=== PATIENT | male | born 1965 | race Caucasian/White ===

== ENCOUNTER 2018-03-26 10:36 | Inpatient (IN) | payer OTHER ==
[2018-03-26 11:24] VITALS: BMI 24.3
--- NOTE | 2018-03-26 12:08 | HP ---
"COWS - Scale Resting Pulse: 1= OR 81-100 Sweatin= No chills or Flushing Restless Observation: 3= Extraneous Movement Pupil Size: 0= Normal to Room Light Bone or Joint Aches: 0= None Runny Nose/ Eye Tearin= Runny Nose/Eyes GI Upset > 30mins: 0= None Tremor Observation: 0= None Yawning Observation: 0= None Anxiety or Irritability: 2=Irritable/Anxious Goose Flesh Skin: 0=Smooth Skin COWS Score: 8 CIWA Score Nausea/Vomitin-No Nausea/No Vomiting Muscle Tremors: None Anxiety: 4-Mod. Anxious/Guarded Agitation: 4-Moderately Restless Paroxysmal Sweats: No Perspiration Orientation: 2-Disoriented Date<2 days Tacttile Disturbances: 0-None Auditory Disturbances: 0-None Visual Disturbances: 0-None Headache: 0-None Present CIWA-Ar Total Score: 10 - Admission Criteria OASAS Guidelines: Admission for Medically Managed Detox: Requires at least one of the followin. CIWA greater than 12 2. Seizures within the past 24 hours 3. Delirium tremens within the past 24 hours 4. Hallucinations within the past 24 hours 5. Acute intervention needed for co occurring medical disorder 6. Acute intervention needed for co occurring psychiatric disorder 7. Severe withdrawal that cannot be handled at a lower level of care (continued vomiting, continued diarrhea, abnormal vital signs) requiring intravenous medication and/or fluids 8. Admission ROS [facility] Allergies/Adverse Reactions: Allergies Allergy/AdvReac Type Severity Reaction Status Date / Time No Known Drug Allergies Allergy Verified 03/26/18 13:22 pneumococcal vaccine AdvReac Intermediate Verified 03/26/18 13:15 RED SAUCE AdvReac Intermediate Nausea Uncoded 03/26/18 13:15 History of Present Illness: patient here requesting detox from heroin use , reports using 10-20 bags/day heroin since age 31 , intermittent periods of sobriety , longest 13 years with working for [employer] [place] . Latest use yesterday , denies IVDU .OD x 2 , most recently 3 mo ago , Narcan by EMS , taken to [facility]. Has been at this facility in the past . Was in outpt program at [facility], stopped meds, relapsed on heroin . cocaine - latest use 1-2 hours ago , $ 500 in 2 days , first age of use 31 etoh use - latest 1 hr ago had 1 beer, first age of use 15 , max daily use 2 x 6-pk and 2 pints vodka, denies daily use , denies withdrawal symptoms , drinks about 4 x/ week , denies blackouts/ seizures / falls while intoxicated . utox + odalys, fen , opi , bar tobacco 1/2 ppd requesting nrt w/ gum PMhx : hypothyroid 2/2 thyroid CA and thyroidectomy 5 years ago 2/2 left sided anterior cervical mass , HDL , chronic LBP planning to have stim , left knee / left ankle pain chronic , sometimes left knee gives out , has endocrinology appt q 3 mo , missed latest appt , [facility] PShx : as above+ ventral hernia & SBO 4 years ago ( [facility]) Psych : anxiety , depression - latest seen psych 2 mo ago @ [facility] , given meds does not know name , did not bring. Shx : lives alone , unemployed , finances habit through odd jobs [employer] database verified : This report was requested by: Janell Alcantar | Reference #: [id number] Others' Prescriptions Patient Name: Amrik Chaparro Date: 1965 Address: [address] [place] [address] Sex: Male Rx Written Rx Dispensed Drug Quantity Days Supply Prescriber Name 12/16/2017 12/17/2017 suboxone 8 mg-2 mg sl film 87 29 Gena Demarco 12/11/2017 12/13/2017 suboxone 8 mg-2 mg sl film 9 3 Milady Magallon 12/08/2017 12/09/2017 suboxone 8 mg-2 mg sl film 15 5 Gena Demarco 12/01/2017 12/02/2017 suboxone 8 mg-2 mg sl film 21 7 Gena Demarco 11/24/2017 11/25/2017 suboxone 8 mg-2 mg sl film 21 7 Gena Demarco 11/18/2017 11/18/2017 suboxone 8 mg-2 mg sl film 21 7 Benito Link MD 11/11/2017 11/12/2017 suboxone 8 mg-2 mg sl film 21 7 Gena Demarco 11/06/2017 11/09/2017 suboxone 8 mg-2 mg sl film 8 3 Gena Demarco 11/03/2017 11/03/2017 suboxone 8 mg-2 mg sl film 14 7 Gena Demarco 10/30/2017 10/31/2017 suboxone 8 mg-2 mg sl film 6 3 Gena Demarco 10/28/2017 10/28/2017 suboxone 8 mg-2 mg sl film 6 3 Gena Demarco Exam Limitations: No Limitations - Ebola screening Have you traveled outside of the country in the last 21 days: No Have you had contact with anyone from an Ebola affected area: No Have you been sick,other than usual withdrawal symptoms: No Do you have a fever: No - Review of Systems Constitutional: See HPI EENT: reports: Other (reading glasses) Respiratory: reports: No Symptoms reported Cardiac: reports: No Symptoms Reported GI: reports: No Symptoms Reported : reports: No Symptoms Reported Musculoskeletal: reports: No Symptoms Reported Integumentary: reports: No Symptoms Reported Neuro: reports: No Symptoms reported Endocrine: reports: Other (hypothyrodism) Psychiatric: reports: Orientated x3, Agitated, Anxious Patient History - Patient Medical History Hx Anemia: No Hx Asthma: No Hx Chronic Obstructive Pulmonary Disease (COPD): No Hx Cancer: Yes (thyroid CA 3yrs ago takes synthroid 150meq) Hx Cardiac Disorders: No Hx Congestive Heart Failure: No Hx Hypertension: No Hx Hypercholesterolemia: No Hx Pacemaker: No HX Cerebrovascular Accident: No Hx Seizures: No Hx Dementia: No Hx Diabetes: No Hx Gastrointestinal Disorders: No Hx Liver Disease: No Hx Genitourinary Disorders: No Hx Sexually Transmitted Disorders: No Hx Renal Disease (ESRD): No Hx Thyroid Disease: No Hx Human Immunodeficiency Virus (HIV): No (negative) Hx Hepatitis C: No Hx Depression: Yes (on therapy Mar 2014) Hx Suicide Attempt: No (denies) Hx Bipolar Disorder: No Hx Schizophrenia: No - Patient Surgical History Past Surgical History: Yes Hx Neurologic Surgery: No Hx Cataract Extraction: No Hx Cardiac Surgery: No Hx Lung Surgery: No Hx Breast Surgery: No Hx Breast Biopsy: No Hx Abdominal Surgery: Yes (abdominal hernia 1yr ago) Hx Appendectomy: No Hx Cholecystectomy: No Hx Genitourinary Surgery: No Hx Section: No Hx Orthopedic Surgery: No Other Surgical History: thryroidectomy 2011 Anesthesia Reaction: No - PPD History Date: 10/30/14 - Smoking Cessation Smoking history: Smoker current status UNK Have you smoked in the past 12 months: No Aproximately how many cigarettes per day: 0 Hx Chewing Tobacco Use: No - Substances Abused Alcohol Route: Oral Frequency: Daily Amount used: 2 PINTS OF VODKA, AND 12 12OZ CANS OF BEER Age of first use: 15 Date of Last Use: 03/26/18 Cocaine Route: Smoking Frequency: Daily Amount used: $500 Age of first use: 31 Date of Last Use: 03/26/18 Heroin Route: Inhalation Frequency: Daily Amount used: 8-9 BAGS Age of first use: 31 Date of Last Use: 03/25/18 Family Disease History - Family Disease History Family Disease History: Diabetes: Mother (d. 77 ), Heart Disease: Mother, Other : Father (70's A & W ), Brother (d. 58 liver cirrhosis , d. 63 cirhhosis liver , d . 61 liver cirrhosis ), Sister, Daughter (30's A & W ) Other Family History: 12 siblings , 6 half-siblings , youngest sibling 2 y.o. > 100 nieces and nephews Admission Physical Exam [facility] - Vital Signs Vital Signs: Vital Signs - 24 hr 03/26/18 11:21 Temperature 97 F L Pulse Rate 84 Respiratory 20 Rate Blood Pressure 108/74 - Physical General Appearance: Yes: Mild Distress, Anxious HEENTM: Yes: EOMI, Hearing grossly Normal, Normocephalic, Normal Voice Respiratory: Yes: Chest Non-Tender, Lungs Clear, Normal Breath Sounds Neck: Yes: Mass (left side of neck) Breast: Yes: Breast Exam Deferred Cardiology: Yes: Regular Rhythm, Regular Rate, Tachycardia Abdominal: Yes: Normal Bowel Sounds, Soft Genitourinary: Yes: Within Normal Limits Back: Yes: Normal Inspection Musculoskeletal: Yes: full range of Motion, Gait Steady, Back pain (chronic), Joint Stiffness (chronic - left knee, left ankle, bilateral knees crepitus) Extremities: Yes: Normal Capillary Refill, Normal Inspection, Tremors Neurological: Yes: Alert, Motor Strength 5/5 Integumentary: Yes: Dry, Warm - Diagnostic (1) Opioid dependence Current Visit: Yes Status: Acute Qualifiers: Substance use status: in withdrawal Qualified Code(s): F11.23 - Opioid dependence with withdrawal (2) Cocaine dependence Current Visit: Yes Status: Chronic Qualifiers: Substance use status: uncomplicated Qualified Code(s): F14.20 - Cocaine dependence, uncomplicated (3) Alcohol dependence Current Visit: No Status: Acute Qualifiers: Substance use status: uncomplicated Qualified Code(s): F10.20 - Alcohol dependence, uncomplicated (4) Nicotine dependence Current Visit: No Status: Chronic Qualifiers: Nicotine product type: cigarettes (5) Hypothyroidism associated with surgical procedure Current Visit: No Status: Chronic BHS Breath Alcohol Content Breath Alcohol Content: 0 Urine Drug Screen - Results Drug Screen Negative: No Urine Drug Screen Results: ODALYS-Cocaine, OPI-Opiates, BAR-Barbiturates, FEN- Fentanyl"
[2018-03-26] MEDS ORDERED: IBUPROFEN 400 MG TABLET (FP) PO PRN (12:24)
[2018-03-26] MEDS ORDERED: NICOTINE POLACRILEX 2 MG GUM BC PRN (12:24)
[2018-03-26] MEDS ORDERED: P-EPHED 60MG/TRIPROLIDI 2.5MG TABLET PO PRN (12:24)
[2018-03-26] MEDS ORDERED: MAG HYDROX/AL HYDROX/SIMETH 30 ML UNIT-DOSE CUP PO PRN (12:24)
[2018-03-26] MEDS ORDERED: ACETAMINOPHEN 325 MG TABLET (FP) PO PRN (12:24)
[2018-03-26] MEDS ORDERED: MAGNESIUM CITRATE 300 ML BOTTLE PO PRN (12:24)
[2018-03-26] MEDS ORDERED: MAGNESIUM HYDROX 2400MG/30ML ORAL SUSPENSION 30 ML CUP PO PRN (12:24)
[2018-03-26] MEDS ORDERED: guaiFENesin/D-METHORPHAN HB 10 ML UNIT-DOSE CUPS PO PRN (12:24)
[2018-03-26] MEDS ORDERED: MENTHOL/PHENOL 1 EACH UD MM PRN (12:24)
[2018-03-26] MEDS ORDERED: METHADONE HCL 10 MG TABLET (FOR DETOX USE ONLY) PO ONE ×2 (14:15→23:00)
[2018-03-26] MEDS: diazePAM 5 MG TABLET PO PRN ×2 (15:40→22:22)
[2018-03-26] MEDS: ATORVASTATIN CA 10 MG TABLET (FP) PO SCH (22:21)
[2018-03-26] MEDS: THIAMINE HCL 100 MG TABLET (FP) PO SCH (22:22)
[2018-03-27] MEDS ORDERED: LEVOTHYROXINE NA 100 MCG TABLET (FP) ONE (07:09)
[2018-03-27] MEDS ORDERED: LEVOTHYROXINE NA 25 MCG TABLET (FP) ONE (07:09)
[2018-03-27] MEDS: LEVOTHYROXINE 75 MCG, LEVOTHYROXINE 100 MCG PO SCH (07:11)
[2018-03-27] MEDS ORDERED: METHADONE HCL 10 MG TABLET (FOR DETOX USE ONLY) PO ONE (10:00)
[2018-03-27] MEDS ORDERED: LEVOTHYROXINE NA 25 MCG TABLET (FP) PO SCH (10:00)
[2018-03-27] MEDS: PRENATAL VITAMINS W/ FOLIC ACID TABLET (FP) PO SCH (10:17)
[2018-03-27] MEDS: GABAPENTIN 300 MG CAPSULE (FP) PO SCH ×2 (10:18→22:06)
[2018-03-27 10:31] LABS: HEMATOCRIT 42.1 % (35.4-49); HEMOGLOBIN 14.5 GM/dL (11.7-16.9); MCH 31.6 pg (25.7-33.7); MCHC 34.5 g/dl (32.0-35.9); MEAN CELL VOLUME 91.5 fl (80-96); MEAN PLT VOLUME 10.3 fl (7.5-11.1); PLATELET COUNT 322 K/MM3 (134-434); RDW 14.7 % (11.9-15.9); WHITE BLOOD COUNT 6.6 K/mm3 (4.0-10.0)
[2018-03-27 11:05] LABS: ALBUMIN 3.6 g/dl (3.4-5.0); ALK PHOS 89 U/L (45-117); ANION GAP 6 MMOL/L (8-16); BILIRUBIN,TOTAL 0.8 mg/dL (0.2-1); BLOOD UREA NITROGEN 23 mg/dL (7-18); CHLORIDE 109 mmol/L (98-107); CO2 28 mmol/L (21-32); CREATININE 1.1 mg/dL (0.55-1.3); GLUCOSE,RANDOM 113 mg/dL (74-106); POTASSIUM 5.2 mmol/L (3.5-5.1); SGOT/AST 24 U/L (15-37); SGPT/ALT 29 U/L (13-61); SODIUM 143 mmol/L (136-145); TOT PROT 6.5 g/dl (6.4-8.2)
--- NOTE | 2018-03-27 11:42 | PN ---
[facility] CIWA - CIWA Score Nausea/Vomitin-No Nausea/No Vomiting Muscle Tremors: 2 Anxiety: 2 Agitation: 2 Paroxysmal Sweats: No Perspiration Orientation: 0-Oriented Tacttile Disturbances: 3-Moderate Itch/Numb/Burn Auditory Disturbances: 0-None Visual Disturbances: 0-None Headache: 0-None Present CIWA-Ar Total Score: 9 BHS COWS - Scale Resting Pulse: 0= PA 80 or Below Sweatin= No chills or Flushing Restless Observation: 1= Difficult to Sit Still Pupil Size: 1= Pupils >than Normal Bone or Joint Aches: 2= Severe Diffuse Aches Runny Nose/ Eye Tearin= None GI Upset > 30mins: 0= None Tremor Observation of Outstretched Hands: 2= Slight Tremor Visible Yawning Observation: 0= None Anxiety or Irritability: 2=Irritable/Anxious Goose Flesh Skin: 0=Smooth Skin COWS Score: 8 BHS Progress Note (SOAP) Subjective: PATIENT C/O ANXIETY, RESTLESSNESS, SHAKES, CHILLS, SLEEP DISTURBANCE AND NUMBNESS/TINGLING TO EXTREMITIES. Objective: 03/27/18 11:38 Vital Signs Temperature 97.9 F 03/27/18 10:47 Pulse Rate 65 03/27/18 10:47 Respiratory Rate 18 03/27/18 10:47 Blood Pressure 106/63 03/27/18 10:47 O2 Sat by Pulse Oximetry (%) Laboratory Tests 03/27/18 03/27/18 05:45 05:45 WBC 6.6 RBC 4.60 Hgb 14.5 Hct 42.1 MCV 91.5 MCH 31.6 MCHC 34.5 RDW 14.7 Plt Count 322 MPV 10.3 D Sodium 143 Potassium 5.2 H Chloride 109 H Carbon Dioxide 28 Anion Gap 6 L BUN 23 H Creatinine 1.1 Creat Clearance w eGFR > 60 Random Glucose 113 H Calcium 9.0 Total Bilirubin 0.8 AST 24 ALT 29 Alkaline Phosphatase 89 Total Protein 6.5 Albumin 3.6 PE: SKIN WARM AND DRY ALERT AND ORIENTED X 3 EXT FULL ROM, +SHAKES, NO EDEMA AMB AD CHARLIE ANXIOUS/RESTLESSNESS Assessment: 03/27/18 11:42 WITHDRAWAL SX Plan: CONTINUE DETOX ENCOURAGE ORAL FLUIDS EXTERNAL HX REVIEWED, PATIENT LAST ORDERED GABAPENTIN 300MG TID 11/2017 WILL ORDER GABAPENTIN 300MG BID CONTINUE TO MONITOR CLINICALLY
[2018-03-27] MEDS: ATORVASTATIN CA 10 MG TABLET (FP) PO SCH (22:06)
[2018-03-27] MEDS: diazePAM 5 MG TABLET PO PRN (22:06)
[2018-03-27] MEDS: THIAMINE HCL 100 MG TABLET (FP) PO SCH (22:06)
[2018-03-27] MEDS: MELATONIN 5 MG TABLETS PO PRN (22:07)
[2018-03-27] MEDS: LOPERAMIDE HCL 2 MG CAPSULE PO PRN (22:26)
[2018-03-28] MEDS ORDERED: LEVOTHYROXINE NA 25 MCG TABLET (FP) ONE (04:36)
[2018-03-28] MEDS ORDERED: LEVOTHYROXINE NA 100 MCG TABLET (FP) ONE (04:36)
[2018-03-28] MEDS: LOPERAMIDE HCL 2 MG CAPSULE PO PRN ×3 (04:43→19:19)
[2018-03-28] MEDS: diazePAM 5 MG TABLET PO PRN ×4 (05:07→22:03)
[2018-03-28] MEDS: LEVOTHYROXINE 75 MCG, LEVOTHYROXINE 100 MCG PO SCH (06:03)
[2018-03-28] MEDS: PRENATAL VITAMINS W/ FOLIC ACID TABLET (FP) PO SCH (09:52)
[2018-03-28] MEDS: GABAPENTIN 300 MG CAPSULE (FP) PO SCH ×2 (09:52→22:03)
[2018-03-28] MEDS ORDERED: METHADONE HCL 5 MG TABLET (FOR DETOX USE ONLY) PO ONE (10:00)
--- NOTE | 2018-03-28 10:24 | PN ---
[facility] CIWA - CIWA Score Nausea/Vomitin Muscle Tremors: 2 Anxiety: 3 Agitation: 3 Paroxysmal Sweats: 2 Orientation: 0-Oriented Tacttile Disturbances: 1-Very Mild Itch/Numbness Auditory Disturbances: 0-None Visual Disturbances: 0-None Headache: 1-Very Mild CIWA-Ar Total Score: 15 S COWS - Scale Resting Pulse: 0= DE 80 or Below Sweatin= Chills/Flushing Restless Observation: 1= Difficult to Sit Still Pupil Size: 0= Normal to Room Light Bone or Joint Aches: 1= Mild Discomfort Runny Nose/ Eye Tearin= Nasal Congestion GI Upset > 30mins: 5=Frequent Vomit/Diarrhea Tremor Observation of Outstretched Hands: 2= Slight Tremor Visible Yawning Observation: 0= None Anxiety or Irritability: 1=Feels Anxious/Irritable Goose Flesh Skin: 0=Smooth Skin COWS Score: 12 BHS Progress Note (SOAP) Subjective: Diarrhea, nausea, tremors, interrupted sleep Objective: 03/28/18 10:21 Vital Signs - 8 hr 03/28/18 03/28/18 03/28/18 03:30 06:10 09:34 Temperature 97.0 F L 96.2 F L Pulse Rate 65 68 Respiratory 18 18 18 Rate Blood Pressure 123/85 132/82 Laboratory Last Values WBC 6.6 K/mm3 (4.0-10.0) 03/27/18 05:45 RBC 4.60 M/mm3 (4.00-5.60) 03/27/18 05:45 Hgb 14.5 GM/dL (11.7-16.9) 03/27/18 05:45 Hct 42.1 % (35.4-49) 03/27/18 05:45 MCV 91.5 fl (80-96) 03/27/18 05:45 MCH 31.6 pg (25.7-33.7) 03/27/18 05:45 MCHC 34.5 g/dl (32.0-35.9) 03/27/18 05:45 RDW 14.7 % (11.9-15.9) 03/27/18 05:45 Plt Count 322 K/MM3 (134-434) 03/27/18 05:45 MPV 10.3 fl (7.5-11.1) D 03/27/18 05:45 Sodium 143 mmol/L (136-145) 03/27/18 05:45 Potassium 5.2 mmol/L (3.5-5.1) H 03/27/18 05:45 Chloride 109 mmol/L (98-107) H 03/27/18 05:45 Carbon Dioxide 28 mmol/L (21-32) 03/27/18 05:45 Anion Gap 6 MMOL/L (8-16) L 03/27/18 05:45 BUN 23 mg/dL (7-18) H 03/27/18 05:45 Creatinine 1.1 mg/dL (0.55-1.3) 03/27/18 05:45 Creat Clearance w eGFR > 60 (>60) 03/27/18 05:45 Random Glucose 113 mg/dL (74-106) H 03/27/18 05:45 Calcium 9.0 mg/dL (8.5-10.1) 03/27/18 05:45 Total Bilirubin 0.8 mg/dL (0.2-1) 03/27/18 05:45 AST 24 U/L (15-37) 03/27/18 05:45 ALT 29 U/L (13-61) 03/27/18 05:45 Alkaline Phosphatase 89 U/L (45-117) 03/27/18 05:45 Total Protein 6.5 g/dl (6.4-8.2) 03/27/18 05:45 Albumin 3.6 g/dl (3.4-5.0) 03/27/18 05:45 RPR Titer Nonreactive (NONREACTIVE) 03/27/18 05:45 Labs noted Potassium repeated this morning, results pending Abdomen soft, BS x4, NT, ND Assessment: Withdrawal sx with protracted diarrhea Plan: Continue detox Patient encouraged to take loperamide as ordered
[2018-03-28] MEDS: ATORVASTATIN CA 10 MG TABLET (FP) PO SCH (22:03)
[2018-03-28] MEDS: THIAMINE HCL 100 MG TABLET (FP) PO SCH (22:03)
[2018-03-28] MEDS: MELATONIN 5 MG TABLETS PO PRN (22:03)
[2018-03-28] MEDS: DIPHENOXYLATE 2.5/ATROPINE.025 1 COMBO TABLET PO PRN (23:52)
[2018-03-29] MEDS: diazePAM 5 MG TABLET PO PRN ×2 (03:04→10:09)
[2018-03-29] MEDS ORDERED: LEVOTHYROXINE NA 100 MCG TABLET (FP) ONE (04:10)
[2018-03-29] MEDS ORDERED: LEVOTHYROXINE NA 25 MCG TABLET (FP) ONE (04:10)
[2018-03-29] MEDS: DIPHENOXYLATE 2.5/ATROPINE.025 1 COMBO TABLET PO PRN (05:22)
[2018-03-29] MEDS: LEVOTHYROXINE 75 MCG, LEVOTHYROXINE 100 MCG PO SCH (06:56)
[2018-03-29] MEDS ORDERED: METHADONE HCL 10 MG TABLET (FOR DETOX USE ONLY) PO ONE (10:00)
[2018-03-29] MEDS: GABAPENTIN 300 MG CAPSULE (FP) PO SCH ×2 (10:09→22:30)
[2018-03-29] MEDS: PRENATAL VITAMINS W/ FOLIC ACID TABLET (FP) PO SCH (10:09)
[2018-03-29] MEDS ORDERED: DIPHENOXYLATE 2.5/ATROPINE.025 1 COMBO TABLET PO PRN ×2 (10:17→10:29)
[2018-03-29] MEDS ORDERED: LOPERAMIDE HCL 2 MG CAPSULE PO ONE (10:46)
[2018-03-29] MEDS: LOPERAMIDE HCL 2 MG CAPSULE PO PRN ×4 (14:17→22:32)
--- NOTE | 2018-03-29 15:25 | PN ---
BHS Progress Note (SOAP) Subjective: Diarrhea (persistent), interrupted sleep Objective: 03/29/18 15:20 Last Vital Signs Temp Pulse Resp BP Pulse Ox 97.8 F 90 18 110/79 03/29/18 13:14 03/29/18 13:14 03/29/18 13:14 03/29/18 13:14 Laboratory Tests 03/27/18 03/27/18 03/27/18 05:45 05:45 05:45 WBC 6.6 RBC 4.60 Hgb 14.5 Hct 42.1 MCV 91.5 MCH 31.6 MCHC 34.5 RDW 14.7 Plt Count 322 MPV 10.3 D Sodium 143 Potassium 5.2 H Chloride 109 H Carbon Dioxide 28 Anion Gap 6 L BUN 23 H Creatinine 1.1 Creat Clearance w eGFR > 60 Random Glucose 113 H Calcium 9.0 Total Bilirubin 0.8 AST 24 ALT 29 Alkaline Phosphatase 89 Total Protein 6.5 Albumin 3.6 RPR Titer Nonreactive 03/28/18 07:40 WBC RBC Hgb Hct MCV MCH MCHC RDW Plt Count MPV Sodium Potassium 4.7 Chloride Carbon Dioxide Anion Gap BUN Creatinine Creat Clearance w eGFR Random Glucose Calcium Total Bilirubin AST ALT Alkaline Phosphatase Total Protein Albumin RPR Titer Labs reviewed: bun 23 Assessment: 03/29/18 15:22 Withdrawal symptoms Persistent diarrhea Plan: Continue detox Persistent diarrhea r/t withdrawal: d/c lomotil as patient stated it's not helpful, restart imodium 4mg PO x 1 dose then 2mg PO q2hr prn diarrhea to mdd of 16mg/day, encouraged PO water hydration, repeat BMP in AM
--- NOTE | 2018-03-29 19:27 | PN ---
BHS Progress Note Note: Pt c/o persistent diarrhea. Appears weak, mucus membranes moist, no tenting to skin Continue with the imodium ordered, eat bread, avoid vegetables and diary products. Continue to monitor symptoms
[2018-03-29] MEDS: THIAMINE HCL 100 MG TABLET (FP) PO SCH (22:31)
[2018-03-29] MEDS: ATORVASTATIN CA 10 MG TABLET (FP) PO SCH (22:31)
[2018-03-29] MEDS: MELATONIN 5 MG TABLETS PO PRN (22:32)
[2018-03-30] MEDS: LOPERAMIDE HCL 2 MG CAPSULE PO PRN ×2 (00:43→05:23)
[2018-03-30] MEDS ORDERED: LEVOTHYROXINE NA 25 MCG TABLET (FP) ONE (04:46)
[2018-03-30] MEDS ORDERED: LEVOTHYROXINE NA 100 MCG TABLET (FP) ONE (04:46)
[2018-03-30] MEDS ORDERED: METHADONE HCL 5 MG TABLET (FOR DETOX USE ONLY) PO ONE (06:00)
[2018-03-30] MEDS: LEVOTHYROXINE 75 MCG, LEVOTHYROXINE 100 MCG PO SCH (06:20)
[2018-03-30 09:46] VITALS: BP 117/78; PULSE 91; TEMP 99
--- NOTE | 2018-03-30 10:28 | DS ---
[facility] Detox Discharge Summary Admission Date: 03/26/18 Discharge Date: 03/30/18 - History Present History: Opioid Dependence Additional Comments: 53 years old male admitted on 03/26/18 for opiate withdrawal stabilization completed opiate detox regimen tolerated well alert no acute distress aftercare as per counselor arrangement Pertinent Past History: patient stated that he has diarrhea from food patient has good skin turgor moist oral membrane no pain no nausea no vomiting patient requests to stay in detox longer for diarrhea suggested ER evaluation for etiology patient refuses to go to the ER at this time strong recommend the patient to use emergency services if condition worsening - Physical Exam Results Vital Signs: Vital Signs Temperature 99.0 F 03/30/18 09:45 Pulse Rate 91 H 03/30/18 09:45 Respiratory Rate 17 03/30/18 09:45 Blood Pressure 117/78 03/30/18 09:45 O2 Sat by Pulse Oximetry (%) Pertinent Admission Physical Exam Findings: opiate withdrawal sx Vital Signs Temperature 99.0 F 03/30/18 09:45 Pulse Rate 91 H 03/30/18 09:45 Respiratory Rate 17 03/30/18 09:45 Blood Pressure 117/78 03/30/18 09:45 O2 Sat by Pulse Oximetry (%) Laboratory Last Values WBC 6.6 K/mm3 (4.0-10.0) 03/27/18 05:45 RBC 4.60 M/mm3 (4.00-5.60) 03/27/18 05:45 Hgb 14.5 GM/dL (11.7-16.9) 03/27/18 05:45 Hct 42.1 % (35.4-49) 03/27/18 05:45 MCV 91.5 fl (80-96) 03/27/18 05:45 MCH 31.6 pg (25.7-33.7) 03/27/18 05:45 MCHC 34.5 g/dl (32.0-35.9) 03/27/18 05:45 RDW 14.7 % (11.9-15.9) 03/27/18 05:45 Plt Count 322 K/MM3 (134-434) 03/27/18 05:45 MPV 10.3 fl (7.5-11.1) D 03/27/18 05:45 Sodium 143 mmol/L (136-145) 03/27/18 05:45 Potassium 4.7 mmol/L (3.5-5.1) 03/28/18 07:40 Chloride 109 mmol/L (98-107) H 03/27/18 05:45 Carbon Dioxide 28 mmol/L (21-32) 03/27/18 05:45 Anion Gap 6 MMOL/L (8-16) L 03/27/18 05:45 BUN 23 mg/dL (7-18) H 03/27/18 05:45 Creatinine 1.1 mg/dL (0.55-1.3) 03/27/18 05:45 Creat Clearance w eGFR > 60 (>60) 03/27/18 05:45 Random Glucose 113 mg/dL (74-106) H 03/27/18 05:45 Calcium 9.0 mg/dL (8.5-10.1) 03/27/18 05:45 Total Bilirubin 0.8 mg/dL (0.2-1) 03/27/18 05:45 AST 24 U/L (15-37) 03/27/18 05:45 ALT 29 U/L (13-61) 03/27/18 05:45 Alkaline Phosphatase 89 U/L (45-117) 03/27/18 05:45 Total Protein 6.5 g/dl (6.4-8.2) 03/27/18 05:45 Albumin 3.6 g/dl (3.4-5.0) 03/27/18 05:45 RPR Titer Nonreactive (NONREACTIVE) 03/27/18 05:45 lab noted - Treatment Hospital Course: Detox Protocol Followed, Detoxed Safely, Responded well, Discharged Condition Good, Rehab Referral Accepted Patient has Accepted a Rehab Referral to: as per counselor arrangement - Medication Discharge Medications: Ambulatory Orders Atorvastatin Calcium [Lipitor] 10 mg PO HS 03/26/18 Gabapentin [Neurontin -] 300 mg PO Q8H 03/26/18 Levothyroxine [Synthroid -] 175 mcg PO DAILY 03/26/18 - Diagnosis (1) Opioid dependence with withdrawal Status: Acute (2) Diarrhea Status: Acute Qualifiers: Diarrhea type: unspecified type Qualified Code(s): R19.7 - Diarrhea, unspecified (3) Opioid-induced mood disorder Status: Suspected (4) Nicotine dependence Status: Acute Qualifiers: Nicotine product type: cigarettes Substance use status: in withdrawal Qualified Code(s): F17.213 - Nicotine dependence, cigarettes, with withdrawal - AMA Did Patient Leave Against Medical Advice: No
[2018-03-30 10:32] LABS: ANION GAP 7 MMOL/L (8-16); BLOOD UREA NITROGEN 13 mg/dL (7-18); CALCIUM 8.5 mg/dL (8.5-10.1); CHLORIDE 106 mmol/L (98-107); CO2 25 mmol/L (21-32); GLUCOSE,RANDOM 86 mg/dL (74-106); POTASSIUM 4.5 mmol/L (3.5-5.1); SODIUM 139 mmol/L (136-145)
== END 2018-03-30 09:39 | disposition home or self-care (01) | DRG 773 ==
LOC: YASAS 10:36 → Y3N 14:08
PROC: HZ2ZZZZ Detoxification Services for Substance Abuse Treatment (ICD-10-PCS; principal; 2018-03-26)
DX: F11.23 Opioid dependence with withdrawal (principal); F11.24 Opioid dependence with opioid-induced mood disorder; F10.230 Alcohol dependence with withdrawal, uncomplicated; F14.20 Cocaine dependence, uncomplicated; F17.213 Nicotine dependence, cigarettes, with withdrawal; R19.7 Diarrhea, unspecified; G62.9 Polyneuropathy, unspecified; E78.5 Hyperlipidemia, unspecified; E89.0 Postprocedural hypothyroidism; Z85.850 Personal history of malignant neoplasm of thyroid
CPT/HCPCS: 36415; 80048; 80053; 84132; 85027; 86593

== ENCOUNTER 2018-08-20 12:57 | Inpatient (IN) | payer OTHER ==
[2018-08-20 15:53] VITALS: BMI 24.3
--- NOTE | 2018-08-20 17:20 | HP ---
COWS - Scale Resting Pulse: 0= [place] 80 or Below Sweatin= Chills/Flushing Restless Observation: 0= Sits Still Pupil Size: 0= Normal to Room Light Bone or Joint Aches: 4=Acute Joint/Muscle Pain Runny Nose/ Eye Tearin= None GI Upset > 30mins: 1= Stomach Cramp Tremor Observation: 0= None Yawning Observation: 0= None Anxiety or Irritability: 1=Feels Anxious/Irritable Goose Flesh Skin: 0=Smooth Skin COWS Score: 7 CIWA Score Nausea/Vomitin-No Nausea/No Vomiting Muscle Tremors: None Anxiety: 4-Mod. Anxious/Guarded Agitation: 0-Normal Activity Paroxysmal Sweats: No Perspiration Orientation: 1-Uncertain about Date Tacttile Disturbances: 1-Very Mild Itch/Numbness Auditory Disturbances: 0-None Visual Disturbances: 3-Moderate Sensitivity Headache: 0-None Present CIWA-Ar Total Score: 9 - Admission Criteria OASAS Guidelines: Admission for Medically Managed Detox: Requires at least one of the followin. CIWA greater than 12 2. Seizures within the past 24 hours 3. Delirium tremens within the past 24 hours 4. Hallucinations within the past 24 hours 5. Acute intervention needed for co occurring medical disorder 6. Acute intervention needed for co occurring psychiatric disorder 7. Severe withdrawal that cannot be handled at a lower level of care (continued vomiting, continued diarrhea, abnormal vital signs) requiring intravenous medication and/or fluids 8. Admission ROS [facility] Allergies/Adverse Reactions: Allergies Allergy/AdvReac Type Severity Reaction Status Date / Time No Known Drug Allergies Allergy Verified 08/20/18 15:47 pneumococcal vaccine AdvReac Intermediate Verified 08/20/18 15:47 RED SAUCE AdvReac Intermediate Nausea Uncoded 08/20/18 15:47 History of Present Illness: patient here requesting detox from heroin use , reports using 8-10 bags/day via inhalation since age 31 , intermittent periods of sobriety , longest 13 years with working for [employer] [place] . Latest use this morning 5 am 3 bags , current symptoms as above , denies IVDU . OD x 2 , most recently 8 mo ago , Narcan by EMS , taken to [facility]. Has been at this facility in the past . Was in outpt program at [facility], stopped meds, relapsed on heroin . cocaine - " a lot " , $ 200/ day , first age of use 31 , denies IVDU etoh use - latest 2 hrs ago had 1 beer, first age of use 15 , max daily use now is 1 x 6-pk and 1 pint vodka, denies daily use , denies withdrawal symptoms , drinks about 2-3 x/week , denies blackouts/ seizures / falls while intoxicated . utox + odalys, fen , opi tobacco 1/2 ppd requesting nrt w/ gum PMhx : hypothyroid 2/2 thyroid CA and thyroidectomy 5 years ago 2/2 left sided anterior cervical mass , HDL , chronic LBP planning to have stim , left knee / left ankle pain chronic , sometimes left knee gives out , has endocrinology appt q 3 mo , missed latest appt , [facility] PShx : as above+ ventral hernia & SBO 4 years ago ( [facility]) Psych : anxiety , depression - latest seen psych 2 mo ago @ [facility] , given meds does not know name , did not bring. Shx : lives alone , unemployed , finances habit through odd jobs Exam Limitations: Clinical Condition - Ebola screening Have you traveled outside of the country in the last 21 days: No Have you had contact with anyone from an Ebola affected area: No Do you have a fever: No - Review of Systems Constitutional: See HPI EENT: reports: See HPI Respiratory: reports: No Symptoms reported Cardiac: reports: No Symptoms Reported GI: reports: See HPI : reports: No Symptoms Reported Musculoskeletal: reports: Muscle Pain Integumentary: reports: No Symptoms Reported Neuro: reports: No Symptoms reported Endocrine: reports: No Symptoms Reported Psychiatric: reports: Orientated x3 Patient History - Patient Medical History Hx Anemia: No Hx Asthma: No Hx Chronic Obstructive Pulmonary Disease (COPD): No Hx Cancer: Yes (thyroid CA 3yrs ago takes synthroid 150meq) Hx Cardiac Disorders: No Hx Congestive Heart Failure: No Hx Hypertension: No Hx Hypercholesterolemia: No Hx Pacemaker: No HX Cerebrovascular Accident: No Hx Seizures: No Hx Dementia: No Hx Diabetes: No Hx Gastrointestinal Disorders: No Hx Liver Disease: No Hx Genitourinary Disorders: No Hx Sexually Transmitted Disorders: No Hx Renal Disease (ESRD): No Hx Thyroid Disease: No Hx Human Immunodeficiency Virus (HIV): No (negative) Hx Hepatitis C: No Hx Depression: Yes (on therapy Mar 2014) Hx Suicide Attempt: No (denies) Hx Bipolar Disorder: No Hx Schizophrenia: No - Patient Surgical History Past Surgical History: Yes Hx Neurologic Surgery: No Hx Cataract Extraction: No Hx Cardiac Surgery: No Hx Lung Surgery: No Hx Breast Surgery: No Hx Breast Biopsy: No Hx Abdominal Surgery: Yes (abdominal hernia 1yr ago) Hx Appendectomy: No Hx Cholecystectomy: No Hx Genitourinary Surgery: No Hx Section: No Hx Orthopedic Surgery: No Other Surgical History: thryroidectomy 2010 Anesthesia Reaction: No - PPD History Date: 03/28/18 - Smoking Cessation Smoking history: Smoker current status UNK Have you smoked in the past 12 months: No Aproximately how many cigarettes per day: 0 Cigars Per Day: 0 Hx Chewing Tobacco Use: No - Substances abused Heroin Substance route: Inhalation Frequency: Daily Amount used: 8 BAGS- $80 Age of first use: 31 Date of last use: 08/20/18 Crack Substance route: Smoking Frequency: Daily Amount used: $50 Age of first use: 31 Date of last use: 08/20/18 Alcohol Substance route: Oral Frequency: Daily Amount used: VODKA- 2PTS BEERS- 6PK X2 DAILY Age of first use: 14 Date of last use: 08/20/18 Family Disease History - Family Disease History Family Disease History: Diabetes: Mother (d. 77 ), Heart Disease: Mother, Other : Father (70's A & W ), Brother (d. 58 liver cirrhosis , d. 63 cirhhosis liver , d . 61 liver cirrhosis ), Sister, Daughter (30's A & W ) Admission Physical Exam [facility] - Vital Signs Vital Signs: Vital Signs - 24 hr 08/20/18 15:48 Temperature 97.4 F L Pulse Rate 64 Respiratory 19 Rate Blood Pressure 127/77 - Physical General Appearance: Yes: Mild Distress HEENTM: Yes: EOMI, Hearing grossly Normal, Normocephalic, Normal Voice, Nasal Congestion Respiratory: Yes: Chest Non-Tender, Lungs Clear, No Respiratory Distress, No Accessory Muscle Use Neck: Yes: No masses,lesions,Nodules, Trachea in good position Cardiology: Yes: Regular Rhythm, Regular Rate, S1, S2 Abdominal: Yes: Non Tender, Soft Back: Yes: Normal Inspection Musculoskeletal: Yes: full range of Motion, Gait Steady Extremities: Yes: Normal Range of Motion, Non-Tender Neurological: Yes: Fully Oriented, Alert, Motor Strength 5/5 Integumentary: Yes: Warm - Diagnostic (1) Alcohol dependence Current Visit: Yes Status: Acute Qualifiers: Substance use status: uncomplicated Qualified Code(s): F10.20 - Alcohol dependence, uncomplicated (2) Nicotine dependence Current Visit: Yes Status: Chronic Qualifiers: Nicotine product type: cigarettes (3) Opioid dependence with withdrawal Current Visit: Yes Status: Acute (4) Cocaine dependence Current Visit: Yes Status: Chronic Qualifiers: Substance use status: uncomplicated Qualified Code(s): F14.20 - Cocaine dependence, uncomplicated Breathalyzer - Breathalyzer Breathalyzer: 0 Urine Drug Screen - Test Device Lot number: [id number] Expiration date: 05/14/20 - Control Is test valid?: Yes - Results Drug screen NEGATIVE: No Urine drug screen results: ODALYS-Cocaine, FEN-Fentanyl, MOP-Opiates Inpatient Rehab Admission - Rehab Decision to Admit Inpatient rehab admission?: No
[2018-08-20] MEDS ORDERED: MAG HYDROX/AL HYDROX/SIMETH 30 ML UNIT-DOSE CUP PO PRN (17:27)
[2018-08-20] MEDS ORDERED: BISMUTH SUBSALICYLATE 524 MG/30 ML UD PO PRN (17:27)
[2018-08-20] MEDS ORDERED: cloNIDine HCL 0.1 MG TABLET PO PRN (17:27)
[2018-08-20] MEDS ORDERED: ACETAMINOPHEN 325 MG TABLET (FP) PO PRN ×2 (17:27)
[2018-08-20] MEDS ORDERED: MAGNESIUM CITRATE 300 ML BOTTLE PO PRN (17:27)
[2018-08-20] MEDS ORDERED: MENTHOL/PHENOL 1 EACH UD MM PRN (17:27)
[2018-08-20] MEDS ORDERED: DICYCLOMINE HCL 10 MG CAPSULE PO PRN (17:27)
[2018-08-20] MEDS ORDERED: MAGNESIUM HYDROX 2400MG/30ML ORAL SUSPENSION 30 ML CUP PO PRN (17:27)
[2018-08-20] MEDS ORDERED: NICOTINE POLACRILEX 2 MG GUM BUC PRN (17:27)
[2018-08-20] MEDS ORDERED: MELATONIN 5 MG TABLETS PO PRN (17:27)
[2018-08-20] MEDS ORDERED: GABAPENTIN 300 MG CAPSULE (FP) PO SCH (17:30)
[2018-08-20] MEDS: diazePAM 5 MG TABLET PO PRN (21:04)
[2018-08-20] MEDS ORDERED: GABAPENTIN 300 MG CAPSULE (FP) PO ONE (22:00)
[2018-08-20] MEDS: THIAMINE HCL 100 MG TABLET (FP) PO SCH (22:30)
[2018-08-20] MEDS ORDERED: METHADONE HCL 10 MG TABLET (FOR DETOX USE ONLY) PO ONE (23:00)
[2018-08-20] MEDS: diazePAM 5 MG TABLET PO SCH (23:54)
[2018-08-21] MEDS: diazePAM 5 MG TABLET PO SCH ×3 (05:47→22:41)
[2018-08-21] MEDS ORDERED: PATIENT'S OWN MEDICATION (NON-FORMULARY) (Levothyroxine [Synthroid -] 175 MCG) PO SCH (06:30)
[2018-08-21] MEDS ORDERED: LEVOTHYROXINE 100 MCG, LEVOTHYROXINE 75 MCG PO SCH (07:00)
[2018-08-21] MEDS ORDERED: METHADONE HCL 10 MG TABLET (FOR DETOX USE ONLY) PO ONE (10:00)
[2018-08-21 10:01] LABS: HEMATOCRIT 43.8 % (35.4-49); HEMOGLOBIN 14.2 GM/dL (11.7-16.9); MCH 29.9 pg (25.7-33.7); MCHC 32.3 g/dl (32.0-35.9); MEAN CELL VOLUME 92.6 fl (80-96); MEAN PLT VOLUME 9.2 fl (7.5-11.1); PLATELET COUNT 332 K/MM3 (134-434); RBC 4.73 M/mm3 (4.00-5.60); RDW 14.4 % (11.9-15.9); WHITE BLOOD COUNT 5.1 K/mm3 (4.0-10.0)
--- NOTE | 2018-08-21 10:03 | PN ---
BHS COWS - Scale Resting Pulse: 0= NE 80 or Below Sweatin= Chills/Flushing Restless Observation: 3= Extraneous Movement Pupil Size: 1= Pupils >than Normal Bone or Joint Aches: 2= Severe Diffuse Aches Runny Nose/ Eye Tearin= Runny Nose/Eyes GI Upset > 30mins: 2= Nausea/Diarrhea Tremor Observation of Outstretched Hands: 2= Slight Tremor Visible Yawning Observation: 1= 1-2x During Session Anxiety or Irritability: 2=Irritable/Anxious Goose Flesh Skin: 0=Smooth Skin COWS Score: 16 BHS Progress Note (SOAP) Subjective: alert,irritable,anxious,interrupted sleep,tremor,pain in the body Objective: 08/21/18 10:02 Vital Signs Temperature 97.7 F 08/21/18 09:48 Pulse Rate 80 08/21/18 09:48 Respiratory Rate 18 08/21/18 09:48 Blood Pressure 147/83 08/21/18 09:48 O2 Sat by Pulse Oximetry (%) 08/21/18 10:03 labs pending Assessment: 08/21/18 10:03 withdrawal symptom Plan: continue detox
[2018-08-21 10:19] LABS: ALBUMIN 2.7 g/dl (3.4-5.0); BILIRUBIN,TOTAL 0.3 mg/dL (0.2-1); CALCIUM 8.2 mg/dL (8.5-10.1); CREATININE 0.7 mg/dL (0.55-1.3); POTASSIUM 4.2 mmol/L (3.5-5.1); TOT PROT 5.5 g/dl (6.4-8.2)
[2018-08-21] MEDS: PRENATAL VITAMINS W/ FOLIC ACID TABLET (FP) PO SCH (10:24)
--- NOTE | 2018-08-21 14:51 | EKG ---
Test Reason : Blood Pressure : / mmHG Vent. Rate : 054 BPM Atrial Rate : 054 BPM P-R Int : 160 ms QRS Dur : 088 ms QT Int : 414 ms P-R-T Axes : 074 085 067 degrees QTc Int : 392 ms SINUS BRADYCARDIA WITH SINUS ARRHYTHMIA NO PREVIOUS ECGS AVAILABLE Confirmed by ALIX DIAZ MD ([id number]) on 08/21/2018 2:51:14 PM Referred By: Confirmed By:ALIX DIAZ MD
[2018-08-21] MEDS: diazePAM 5 MG TABLET PO PRN ×2 (15:21→19:44)
[2018-08-21] MEDS: GABAPENTIN 300 MG CAPSULE (FP) PO SCH ×2 (15:25→22:41)
[2018-08-21] MEDS: THIAMINE HCL 100 MG TABLET (FP) PO SCH (22:42)
[2018-08-22] MEDS: diazePAM 5 MG TABLET PO PRN ×3 (01:15→17:43)
[2018-08-22] MEDS: LEVOTHYROXINE 100 MCG, LEVOTHYROXINE 75 MCG PO SCH (06:41)
[2018-08-22] MEDS: GABAPENTIN 300 MG CAPSULE (FP) PO SCH ×3 (06:42→21:57)
[2018-08-22] MEDS ORDERED: METHADONE HCL 10 MG TABLET (FOR DETOX USE ONLY) PO ONE (10:00)
[2018-08-22] MEDS: PRENATAL VITAMINS W/ FOLIC ACID TABLET (FP) PO SCH (10:54)
[2018-08-22] MEDS: diazePAM 5 MG TABLET PO SCH ×2 (10:54→21:57)
--- NOTE | 2018-08-22 10:54 | PN ---
BHS COWS - Scale Resting Pulse: 1= [place] 81-100 Sweatin=Flushed/Facial Moisture Restless Observation: 1= Difficult to Sit Still Pupil Size: 0= Normal to Room Light Bone or Joint Aches: 2= Severe Diffuse Aches Runny Nose/ Eye Tearin= Runny Nose/Eyes GI Upset > 30mins: 0= None Tremor Observation of Outstretched Hands: 2= Slight Tremor Visible Yawning Observation: 1= 1-2x During Session Anxiety or Irritability: 1=Feels Anxious/Irritable Goose Flesh Skin: 0=Smooth Skin COWS Score: 12 BHS Progress Note (SOAP) Subjective: c/o sweats, anxiety, irritability, and tremor. Objective: 08/22/18 10:53 Vital Signs 08/22/18 08/22/18 08:00 09:52 Temperature 97.3 F L 98.2 F Pulse Rate 83 80 Respiratory 18 18 Rate Blood Pressure 133/85 139/77 Assessment: 08/22/18 10:53 AOX3, in no respiratory distress withdrawal symptoms persists. Plan: continue detox.
[2018-08-22] MEDS: IBUPROFEN 400 MG TABLET (FP) PO PRN (15:49)
[2018-08-22] MEDS: THIAMINE HCL 100 MG TABLET (FP) PO SCH (21:57)
[2018-08-23] MEDS: IBUPROFEN 400 MG TABLET (FP) PO PRN ×2 (00:58→10:31)
[2018-08-23] MEDS: diazePAM 5 MG TABLET PO PRN ×3 (00:58→14:53)
[2018-08-23] MEDS: GABAPENTIN 300 MG CAPSULE (FP) PO SCH ×2 (05:49→14:13)
[2018-08-23] MEDS ORDERED: diazePAM 5 MG TABLET PO SCH (06:00)
[2018-08-23] MEDS: LEVOTHYROXINE 100 MCG, LEVOTHYROXINE 75 MCG PO SCH (06:18)
[2018-08-23] MEDS ORDERED: METHADONE HCL 10 MG TABLET (FOR DETOX USE ONLY) PO ONE (10:00)
[2018-08-23] MEDS: PRENATAL VITAMINS W/ FOLIC ACID TABLET (FP) PO SCH (10:31)
[2018-08-23] MEDS ORDERED: cloNIDine HCL 0.1 MG TABLET PO PRN (14:02)
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
[2018-08-23 18:31] VITALS: BP 104/93; PULSE 91; TEMP 97.3
--- NOTE | 2018-08-23 21:26 | PN ---
[facility] Progress Note Note: MD'S NOTE: INFORMED AT ABOUT 9:00PM THAT THE PT. WANTS TO SIGN OUT AMA FOR PERSONAL REASONS INSPITE OF ADVICE NOT TO DO SO AT THIS TIME. SO, THE PT. SIGNED OUT AMA AND ABOUT TO LEAVE THE FACILITY SOON. RECOMMENDED: TO F/U WITH PMD AND OUT PT. PROGRAMS. PROVIDER: TITO VASQUEZ MD
[2018-08-24] MEDS ORDERED: METHADONE HCL 5 MG TABLET (FOR DETOX USE ONLY) PO ONE (06:00)
== END 2018-08-23 21:50 | disposition left against medical advice (07) | DRG 770 ==
LOC: YASAS 12:57 → Y6N 20:12 → Y3N 08-23 14:03
PROVIDERS: ADMIT Surgery; ATTEND Surgery
PROC: HZ2ZZZZ Detoxification Services for Substance Abuse Treatment (ICD-10-PCS; principal; 2018-08-20)
DX: F11.23 Opioid dependence with withdrawal (principal); F10.230 Alcohol dependence with withdrawal, uncomplicated; F14.20 Cocaine dependence, uncomplicated; F17.210 Nicotine dependence, cigarettes, uncomplicated; E89.0 Postprocedural hypothyroidism; Z85.850 Personal history of malignant neoplasm of thyroid; M54.5 Low back pain; G89.29 Other chronic pain; Z72.51 High risk heterosexual behavior
CPT/HCPCS: 36415; 80053; 85027; 86593; 93005; 93010; J0735

== ENCOUNTER 2020-12-18 13:00 | Inpatient (IN) | payer OTHER ==
[2020-12-18 13:58] VITALS: BMI 31.7
[2020-12-18] MEDS ORDERED: ACETAMINOPHEN 325 MG TABLET (FP) PO PRN ×2 (15:08)
[2020-12-18] MEDS ORDERED: MAG HYDROX/AL HYDROX/SIMETH 30 ML UNIT-DOSE CUP PO PRN (15:08)
[2020-12-18] MEDS ORDERED: MAGNESIUM CITRATE 300 ML BOTTLE PO PRN (15:08)
[2020-12-18] MEDS ORDERED: ONDANSETRON *ODT* 4 MG TABLET SL PRN (15:08)
[2020-12-18] MEDS ORDERED: cloNIDine HCL 0.1 MG TABLET PO PRN (15:08)
[2020-12-18] MEDS ORDERED: diazePAM 5 MG TABLET PO PRN (15:08)
[2020-12-18] MEDS ORDERED: IBUPROFEN 400 MG TABLET (FP) PO PRN (15:08)
[2020-12-18] MEDS ORDERED: BISMUTH SUBSALICYLATE 524 MG/30 ML PO PRN (15:08)
[2020-12-18] MEDS ORDERED: MENTHOL/PHENOL 1 EACH UD MM PRN (15:08)
[2020-12-18] MEDS ORDERED: clonazePAM 0.5 MG ODT TABLETS SL PRN (15:08)
[2020-12-18] MEDS ORDERED: MAGNESIUM HYDROX 2400MG/30ML ORAL SUSPENSION 30 ML CUP PO PRN (15:08)
[2020-12-18] MEDS ORDERED: methaDONE HCL 10 MG TABLET (FOR DETOX USE ONLY) PO ONE (15:30)
[2020-12-18] MEDS: diazePAM 5 MG TABLET PO SCH ×2 (17:51→22:10)
[2020-12-18] MEDS ORDERED: hydrOXYzine PAMOATE 25 MG CAPSULE (FP) PO SCH (18:00)
[2020-12-18] MEDS: NICOTINE 10 MG CARTRIDGE (INHALER) IH PRN (19:16)
[2020-12-18] MEDS: THIAMINE HCL 100 MG TABLET (FP) PO SCH (22:10)
[2020-12-18] MEDS: MELATONIN 5 MG TABLETS PO SCH (22:11)
[2020-12-19] MEDS ORDERED: LEVOTHYROXINE NA 25 MCG TABLET (FP) ONE (05:32)
[2020-12-19] MEDS ORDERED: LEVOTHYROXINE NA 100 MCG TABLET (FP) ONE (05:33)
[2020-12-19] MEDS: diazePAM 5 MG TABLET PO SCH ×4 (05:33→22:09)
[2020-12-19] MEDS: LEVOTHYROXINE 100 MCG, LEVOTHYROXINE 75 MCG PO SCH (06:08)
[2020-12-19] MEDS ORDERED: NALOXONE (NARCAN) HCL 4 MG/0.1 ML SPRAY NS ONE (09:45)
[2020-12-19] MEDS ORDERED: methaDONE HCL 10 MG TABLET (FOR DETOX USE ONLY) ONE (09:45)
[2020-12-19] MEDS ORDERED: PATIENT'S OWN MEDICATION (NON-FORMULARY) (Levothyroxine [Synthroid -] 175 MCG Tablet) PO SCH (10:00)
[2020-12-19] MEDS: METHOCARBAMOL 500 MG TABLET PO PRN (10:28)
[2020-12-19] MEDS: PRENATAL VITAMINS W/ FOLIC ACID TABLET (FP) PO SCH (10:28)
[2020-12-19 10:34] LABS: HEMATOCRIT 41.8 % (35.4-49); MCH 31.5 pg (25.7-33.7); MCHC 33.6 g/dl (32.0-35.9); MEAN CELL VOLUME 93.8 fl (80-96); MEAN PLT VOLUME 9.3 fl (7.5-11.1); PLATELET COUNT 307 10^3/uL (134-434); RBC 4.45 M/mm3 (4.00-5.60); RDW 16.9 % (11.9-15.9)
[2020-12-19 10:37] LABS: ALBUMIN 2.7 g/dl (3.4-5.0); BLOOD UREA NITROGEN 12.4 mg/dL (7-18); CALCIUM 8.3 mg/dL (8.5-10.1)
[2020-12-19 10:40] LABS: CREATININE 0.8 mg/dL (0.55-1.3)
[2020-12-19 10:42] LABS: BILIRUBIN,TOTAL 0.4 mg/dL (0.2-1); TOT PROT 5.8 g/dl (6.4-8.2)
[2020-12-19] MEDS: THIAMINE HCL 100 MG TABLET (FP) PO SCH (22:10)
[2020-12-19] MEDS: MELATONIN 5 MG TABLETS PO SCH (22:11)
[2020-12-20] MEDS ORDERED: LEVOTHYROXINE NA 100 MCG TABLET (FP) ONE (04:02)
[2020-12-20] MEDS ORDERED: LEVOTHYROXINE NA 25 MCG TABLET (FP) ONE (04:02)
[2020-12-20] MEDS: diazePAM 5 MG TABLET PO SCH ×3 (06:21→22:12)
[2020-12-20] MEDS: LEVOTHYROXINE 100 MCG, LEVOTHYROXINE 75 MCG PO SCH (06:22)
[2020-12-20] MEDS ORDERED: methaDONE HCL 10 MG TABLET (FOR DETOX USE ONLY) PO ONE (10:00)
[2020-12-20] MEDS: PRENATAL VITAMINS W/ FOLIC ACID TABLET (FP) PO SCH (11:12)
[2020-12-20] MEDS: MELATONIN 5 MG TABLETS PO SCH (22:12)
[2020-12-20] MEDS: THIAMINE HCL 100 MG TABLET (FP) PO SCH (22:12)
[2020-12-21] MEDS ORDERED: LEVOTHYROXINE NA 100 MCG TABLET (FP) ONE (04:02)
[2020-12-21] MEDS ORDERED: LEVOTHYROXINE NA 25 MCG TABLET (FP) ONE (04:02)
[2020-12-21] MEDS: diazePAM 5 MG TABLET PO SCH ×2 (05:16→18:01)
[2020-12-21] MEDS: LEVOTHYROXINE 100 MCG, LEVOTHYROXINE 75 MCG PO SCH (06:09)
[2020-12-21] MEDS ORDERED: methaDONE HCL 10 MG TABLET (FOR DETOX USE ONLY) ONE (09:05)
[2020-12-21] MEDS: hydrOXYzine PAMOATE 25 MG CAPSULE (FP) PO PRN (10:13)
[2020-12-21] MEDS: PRENATAL VITAMINS W/ FOLIC ACID TABLET (FP) PO SCH (10:13)
[2020-12-21] MEDS ORDERED: PENICILLIN G BENZATHINE 2,400,000 UNIT/4 ML PFS IM ONE (15:45)
[2020-12-21 17:29] LABS: URINE APPEARANCE CLEAR; URINE BILIRUBIN NEGATIVE (NEGATIVE); URINE COLOR YELLOW; URINE GLUCOSE (UA) NEGATIVE (NEGATIVE); URINE KETONE NEGATIVE (NEGATIVE); URINE LEUK ESTERASE NEGATIVE (NEGATIVE); URINE NITRITE NEGATIVE (NEGATIVE); URINE PROTEIN NEGATIVE (NEGATIVE); URINE UROBILINOGEN 0.2 mg/dL (0.2-1.0)
[2020-12-21] MEDS: MELATONIN 5 MG TABLETS PO SCH (22:15)
[2020-12-21] MEDS: THIAMINE HCL 100 MG TABLET (FP) PO SCH (22:15)
[2020-12-22] MEDS ORDERED: LEVOTHYROXINE NA 25 MCG TABLET (FP) ONE (04:03)
[2020-12-22] MEDS ORDERED: LEVOTHYROXINE NA 100 MCG TABLET (FP) ONE (04:03)
[2020-12-22] MEDS ORDERED: diazePAM 5 MG TABLET PO ONE (06:00)
[2020-12-22] MEDS: LEVOTHYROXINE 100 MCG, LEVOTHYROXINE 75 MCG PO SCH (06:06)
[2020-12-22] MEDS ORDERED: methaDONE HCL 10 MG TABLET (FOR DETOX USE ONLY) PO ONE (10:00)
[2020-12-22] MEDS: PRENATAL VITAMINS W/ FOLIC ACID TABLET (FP) PO SCH (10:19)
[2020-12-22] MEDS: NICOTINE 10 MG CARTRIDGE (INHALER) IH PRN (15:12)
[2020-12-22] MEDS: THIAMINE HCL 100 MG TABLET (FP) PO SCH (22:11)
[2020-12-22] MEDS: hydrOXYzine PAMOATE 25 MG CAPSULE (FP) PO PRN (22:11)
[2020-12-22] MEDS: METHOCARBAMOL 500 MG TABLET PO PRN (22:11)
[2020-12-22] MEDS: MELATONIN 5 MG TABLETS PO SCH (22:12)
[2020-12-23] MEDS ORDERED: LEVOTHYROXINE NA 100 MCG TABLET (FP) ONE (04:40)
[2020-12-23] MEDS ORDERED: LEVOTHYROXINE NA 25 MCG TABLET (FP) ONE (04:40)
[2020-12-23] MEDS: LEVOTHYROXINE 100 MCG, LEVOTHYROXINE 75 MCG PO SCH (06:05)
[2020-12-23 09:28] VITALS: TEMP 96.6
[2020-12-23] MEDS: PRENATAL VITAMINS W/ FOLIC ACID TABLET (FP) PO SCH (10:01)
[2020-12-23] MEDS: hydrOXYzine PAMOATE 25 MG CAPSULE (FP) PO PRN (10:02)
[2020-12-23 12:54] VITALS: BP 129/77; PULSE 85
== END 2020-12-23 12:32 | disposition other institution (70) | DRG 773 ==
LOC: YASAS 13:00 → Y6N 15:23
PROVIDERS: ADMIT Allergy & Immunology; ATTEND Allergy & Immunology
PROC: HZ2ZZZZ Detoxification Services for Substance Abuse Treatment (ICD-10-PCS; principal; 2020-12-18)
DX: F11.23 Opioid dependence with withdrawal (principal); F10.230 Alcohol dependence with withdrawal, uncomplicated; F14.20 Cocaine dependence, uncomplicated; F17.210 Nicotine dependence, cigarettes, uncomplicated; F41.9 Anxiety disorder, unspecified; A53.9 Syphilis, unspecified; E89.0 Postprocedural hypothyroidism; G47.00 Insomnia, unspecified; M25.571 Pain in right ankle and joints of right foot; G89.29 Other chronic pain; Z85.850 Personal history of malignant neoplasm of thyroid; Z87.19 Personal history of other diseases of the digestive system; Z98.890 Other specified postprocedural states; Z88.7 Allergy status to serum and vaccine; Z59.0 Homelessness; Z56.0 Unemployment, unspecified
CPT/HCPCS: 36415; 80053; 81003; 85027; 86593; 86780; C9803; J0735; U0003; U0005

== ENCOUNTER 2020-12-23 12:57 | Inpatient (IN) | payer OTHER ==
[2020-12-23] MEDS ORDERED: MELATONIN 5 MG TABLETS PO PRN (14:24)
[2020-12-23] MEDS ORDERED: ACETAMINOPHEN 325 MG TABLET (FP) PO PRN (14:24)
[2020-12-23] MEDS ORDERED: MAGNESIUM HYDROX 2400MG/30ML ORAL SUSPENSION 30 ML CUP PO PRN (14:24)
[2020-12-23] MEDS ORDERED: MAGNESIUM CITRATE 300 ML BOTTLE PO PRN (14:24)
[2020-12-23] MEDS ORDERED: IBUPROFEN 400 MG TABLET (FP) PO PRN (14:24)
[2020-12-23] MEDS ORDERED: MENTHOL/PHENOL 1 EACH UD MM PRN (14:24)
[2020-12-23] MEDS: THIAMINE HCL 100 MG TABLET (FP) PO SCH (21:23)
[2020-12-24] MEDS: LEVOTHYROXINE 100 MCG, LEVOTHYROXINE 75 MCG PO SCH (06:20)
[2020-12-24] MEDS: MAG HYDROX/AL HYDROX/SIMETH 30 ML UNIT-DOSE CUP PO PRN (08:47)
[2020-12-24] MEDS ORDERED: PATIENT'S OWN MEDICATION (NON-FORMULARY) (Levothyroxine [Synthroid -] 175 MCG Tablet) PO SCH (10:00)
[2020-12-24] MEDS: PRENATAL VITAMINS W/ FOLIC ACID TABLET (FP) PO SCH (10:29)
[2020-12-24] MEDS: THIAMINE HCL 100 MG TABLET (FP) PO SCH (22:21)
[2020-12-25] MEDS: LEVOTHYROXINE 100 MCG, LEVOTHYROXINE 75 MCG PO SCH (06:30)
[2020-12-25] MEDS: PRENATAL VITAMINS W/ FOLIC ACID TABLET (FP) PO SCH (10:39)
[2020-12-25] MEDS: NICOTINE 10 MG CARTRIDGE (INHALER) IH PRN (14:37)
[2020-12-25] MEDS ORDERED: COLLOIDAL OATMEAL 1 BAR EACH TP PRN (15:50)
[2020-12-25] MEDS: SELENIUM SULFIDE 2.5% LOTION 4 OZ. TP SCH (18:20)
[2020-12-25] MEDS: THIAMINE HCL 100 MG TABLET (FP) PO SCH (21:39)
[2020-12-26] MEDS: LEVOTHYROXINE 100 MCG, LEVOTHYROXINE 75 MCG PO SCH (06:24)
[2020-12-26] MEDS: SELENIUM SULFIDE 2.5% LOTION 4 OZ. TP SCH (10:07)
[2020-12-26] MEDS: PRENATAL VITAMINS W/ FOLIC ACID TABLET (FP) PO SCH (10:07)
[2020-12-26] MEDS ORDERED: PT OWN MED DRAWER 7, Y5N ONE (18:45)
[2020-12-26] MEDS: THIAMINE HCL 100 MG TABLET (FP) PO SCH (22:26)
[2020-12-27] MEDS: LEVOTHYROXINE 100 MCG, LEVOTHYROXINE 75 MCG PO SCH (06:30)
[2020-12-27] MEDS: PRENATAL VITAMINS W/ FOLIC ACID TABLET (FP) PO SCH (10:40)
[2020-12-27] MEDS: SELENIUM SULFIDE 2.5% LOTION 4 OZ. TP SCH (10:40)
[2020-12-27] MEDS ORDERED: PT OWN MED DRAWER 7, Y5N ONE ×2 (10:41→10:44)
[2020-12-27] MEDS: MAG HYDROX/AL HYDROX/SIMETH 30 ML UNIT-DOSE CUP PO PRN (10:42)
[2020-12-27] MEDS: THIAMINE HCL 100 MG TABLET (FP) PO SCH (22:57)
[2020-12-28] MEDS: LEVOTHYROXINE 100 MCG, LEVOTHYROXINE 75 MCG PO SCH (06:33)
[2020-12-28] MEDS ORDERED: PENICILLIN G BENZATHINE 2,400,000 UNIT/4 ML PFS IM ONE (10:00)
[2020-12-28] MEDS: PRENATAL VITAMINS W/ FOLIC ACID TABLET (FP) PO SCH (10:28)
[2020-12-28] MEDS: SELENIUM SULFIDE 2.5% LOTION 4 OZ. TP SCH (10:29)
[2020-12-28] MEDS: NICOTINE 10 MG CARTRIDGE (INHALER) IH PRN ×2 (10:56→15:28)
[2020-12-28] MEDS: THIAMINE HCL 100 MG TABLET (FP) PO SCH (21:36)
[2020-12-29] MEDS: LEVOTHYROXINE 100 MCG, LEVOTHYROXINE 75 MCG PO SCH (06:14)
[2020-12-29] MEDS: LOPERAMIDE HCL 2 MG CAPSULE PO PRN ×2 (08:52→15:42)
[2020-12-29] MEDS: PRENATAL VITAMINS W/ FOLIC ACID TABLET (FP) PO SCH (09:49)
[2020-12-29] MEDS: SELENIUM SULFIDE 2.5% LOTION 4 OZ. TP SCH (09:50)
[2020-12-29] MEDS: THIAMINE HCL 100 MG TABLET (FP) PO SCH (21:43)
[2020-12-30] MEDS: LEVOTHYROXINE 100 MCG, LEVOTHYROXINE 75 MCG PO SCH (06:25)
[2020-12-30] MEDS: SELENIUM SULFIDE 2.5% LOTION 4 OZ. TP SCH (10:07)
[2020-12-30] MEDS: PRENATAL VITAMINS W/ FOLIC ACID TABLET (FP) PO SCH (10:07)
[2020-12-30] MEDS: NICOTINE 10 MG CARTRIDGE (INHALER) IH PRN (10:08)
[2020-12-30] MEDS: THIAMINE HCL 100 MG TABLET (FP) PO SCH (21:41)
[2020-12-31] MEDS: LEVOTHYROXINE 100 MCG, LEVOTHYROXINE 75 MCG PO SCH (06:22)
[2020-12-31] MEDS: SELENIUM SULFIDE 2.5% LOTION 4 OZ. TP SCH (10:09)
[2020-12-31] MEDS: NICOTINE 10 MG CARTRIDGE (INHALER) IH PRN (10:09)
[2020-12-31] MEDS: PRENATAL VITAMINS W/ FOLIC ACID TABLET (FP) PO SCH (10:09)
[2020-12-31] MEDS: THIAMINE HCL 100 MG TABLET (FP) PO SCH (22:31)
[2021-01-01] MEDS: LEVOTHYROXINE 100 MCG, LEVOTHYROXINE 75 MCG PO SCH (06:58)
[2021-01-01] MEDS: SELENIUM SULFIDE 2.5% LOTION 4 OZ. TP SCH (10:05)
[2021-01-01] MEDS: NICOTINE 10 MG CARTRIDGE (INHALER) IH PRN (10:17)
[2021-01-01] MEDS: PRENATAL VITAMINS W/ FOLIC ACID TABLET (FP) PO SCH (10:17)
[2021-01-01] MEDS: HYDROCORTISONE 2.5% TOPICAL CREAM 30 GM TUBE RC SCH (21:48)
[2021-01-01] MEDS: THIAMINE HCL 100 MG TABLET (FP) PO SCH (21:48)
[2021-01-02] MEDS ORDERED: PT OWN MED DRAWER 7, Y5N ONE ×2 (02:57→10:04)
[2021-01-02] MEDS: LEVOTHYROXINE 100 MCG, LEVOTHYROXINE 75 MCG PO SCH (06:21)
[2021-01-02] MEDS: PRENATAL VITAMINS W/ FOLIC ACID TABLET (FP) PO SCH (10:03)
[2021-01-03] MEDS: THIAMINE HCL 100 MG TABLET (FP) PO SCH ×2 (00:13→23:21)
[2021-01-03] MEDS: HYDROCORTISONE 2.5% TOPICAL CREAM 30 GM TUBE RC SCH ×2 (00:13→23:21)
[2021-01-03] MEDS: LEVOTHYROXINE 100 MCG, LEVOTHYROXINE 75 MCG PO SCH (06:14)
[2021-01-03] MEDS: PRENATAL VITAMINS W/ FOLIC ACID TABLET (FP) PO SCH (10:21)
[2021-01-03] MEDS: NICOTINE 10 MG CARTRIDGE (INHALER) IH PRN (10:22)
[2021-01-03] MEDS ORDERED: PT OWN MED DRAWER 7, Y5N ONE (10:25)
[2021-01-04] MEDS: LEVOTHYROXINE 100 MCG, LEVOTHYROXINE 75 MCG PO SCH (06:07)
[2021-01-04] MEDS ORDERED: PENICILLIN G BENZATHINE 2,400,000 UNIT/4 ML PFS IM ONE (10:00)
[2021-01-04] MEDS: PRENATAL VITAMINS W/ FOLIC ACID TABLET (FP) PO SCH (11:07)
[2021-01-04] MEDS: HYDROCORTISONE 2.5% TOPICAL CREAM 30 GM TUBE RC SCH (22:04)
[2021-01-04] MEDS: THIAMINE HCL 100 MG TABLET (FP) PO SCH (22:04)
[2021-01-05] MEDS: LEVOTHYROXINE 100 MCG, LEVOTHYROXINE 75 MCG PO SCH (06:16)
[2021-01-05] MEDS: PRENATAL VITAMINS W/ FOLIC ACID TABLET (FP) PO SCH (10:15)
[2021-01-05] MEDS: HYDROCORTISONE 2.5% TOPICAL CREAM 30 GM TUBE RC SCH (22:43)
[2021-01-05] MEDS: THIAMINE HCL 100 MG TABLET (FP) PO SCH (22:43)
[2021-01-06] MEDS: LEVOTHYROXINE 100 MCG, LEVOTHYROXINE 75 MCG PO SCH (06:33)
[2021-01-06] MEDS: PRENATAL VITAMINS W/ FOLIC ACID TABLET (FP) PO SCH (09:53)
[2021-01-06] MEDS ORDERED: PT OWN MED DRAWER 7, Y5N ONE (09:54)
[2021-01-06] MEDS: HYDROCORTISONE 2.5% TOPICAL CREAM 30 GM TUBE RC SCH (21:59)
[2021-01-06] MEDS: THIAMINE HCL 100 MG TABLET (FP) PO SCH (21:59)
[2021-01-07] MEDS: LEVOTHYROXINE 100 MCG, LEVOTHYROXINE 75 MCG PO SCH (06:18)
[2021-01-07] MEDS: PRENATAL VITAMINS W/ FOLIC ACID TABLET (FP) PO SCH (10:07)
[2021-01-07] MEDS: THIAMINE HCL 100 MG TABLET (FP) PO SCH (23:09)
[2021-01-07] MEDS: HYDROCORTISONE 2.5% TOPICAL CREAM 30 GM TUBE RC SCH (23:09)
[2021-01-08] MEDS: LEVOTHYROXINE 100 MCG, LEVOTHYROXINE 75 MCG PO SCH (06:46)
[2021-01-08] MEDS: PRENATAL VITAMINS W/ FOLIC ACID TABLET (FP) PO SCH (10:11)
[2021-01-08] MEDS: HYDROCORTISONE 2.5% TOPICAL CREAM 30 GM TUBE RC SCH (21:49)
[2021-01-08] MEDS: THIAMINE HCL 100 MG TABLET (FP) PO SCH (21:49)
[2021-01-09] MEDS: LEVOTHYROXINE 100 MCG, LEVOTHYROXINE 75 MCG PO SCH (06:21)
[2021-01-09] MEDS: PRENATAL VITAMINS W/ FOLIC ACID TABLET (FP) PO SCH (10:50)
[2021-01-09] MEDS: HYDROCORTISONE 2.5% TOPICAL CREAM 30 GM TUBE RC SCH (21:32)
[2021-01-09] MEDS: THIAMINE HCL 100 MG TABLET (FP) PO SCH (21:32)
[2021-01-10] MEDS: LEVOTHYROXINE 100 MCG, LEVOTHYROXINE 75 MCG PO SCH (06:20)
[2021-01-10] MEDS: PRENATAL VITAMINS W/ FOLIC ACID TABLET (FP) PO SCH (10:55)
[2021-01-10] MEDS: HYDROCORTISONE 2.5% TOPICAL CREAM 30 GM TUBE RC SCH (21:50)
[2021-01-10] MEDS: THIAMINE HCL 100 MG TABLET (FP) PO SCH (21:50)
[2021-01-11] MEDS: LEVOTHYROXINE 100 MCG, LEVOTHYROXINE 75 MCG PO SCH (06:24)
[2021-01-11 06:37] VITALS: TEMP 98.4
[2021-01-11] MEDS: PRENATAL VITAMINS W/ FOLIC ACID TABLET (FP) PO SCH (09:52)
[2021-01-11] MEDS ORDERED: PT OWN MED DRAWER 7, Y5N ONE (09:55)
[2021-01-11] MEDS: LOPERAMIDE HCL 2 MG CAPSULE PO PRN (15:53)
[2021-01-11] MEDS: MAG HYDROX/AL HYDROX/SIMETH 30 ML UNIT-DOSE CUP PO PRN (15:53)
[2021-01-11] MEDS: THIAMINE HCL 100 MG TABLET (FP) PO SCH (22:10)
[2021-01-11] MEDS: HYDROCORTISONE 2.5% TOPICAL CREAM 30 GM TUBE RC SCH (22:10)
[2021-01-12] MEDS: LEVOTHYROXINE 100 MCG, LEVOTHYROXINE 75 MCG PO SCH (06:30)
[2021-01-12 07:17] VITALS: BP 131/86; PULSE 96
== END 2021-01-12 08:40 | disposition home or self-care (01) | DRG 772 ==
LOC: YASAS 12:57 → Y3W 12:58
PROVIDERS: ADMIT Allergy & Immunology; ATTEND Allergy & Immunology
PROC: HZ42ZZZ Group Counseling for Substance Abuse Treatment, Cognitive-Behavioral (ICD-10-PCS; principal; 2020-12-23)
DX: F11.20 Opioid dependence, uncomplicated (principal); F10.20 Alcohol dependence, uncomplicated; F14.20 Cocaine dependence, uncomplicated; F12.20 Cannabis dependence, uncomplicated; E03.9 Hypothyroidism, unspecified; K64.8 Other hemorrhoids; R76.8 Other specified abnormal immunological findings in serum; Z86.19 Personal history of other infectious and parasitic diseases

== ENCOUNTER 2021-03-27 11:12 | Inpatient (IN) | payer OTHER ==
[2021-03-27] MEDS ORDERED: BISMUTH SUBSALICYLATE 262 MG/15 ML BTL PO PRN (11:44)
[2021-03-27] MEDS ORDERED: METHOCARBAMOL 500 MG TABLET PO PRN (11:44)
[2021-03-27] MEDS ORDERED: NICOTINE 10 MG CARTRIDGE (INHALER) IH PRN (11:44)
[2021-03-27] MEDS ORDERED: ONDANSETRON *ODT* 4 MG TABLET SL PRN (11:44)
[2021-03-27] MEDS ORDERED: ACETAMINOPHEN 325 MG TABLET (FP) PO PRN ×2 (11:44)
[2021-03-27] MEDS ORDERED: MAG HYDROX/AL HYDROX/SIMETH 30 ML UNIT-DOSE CUP PO PRN (11:44)
[2021-03-27] MEDS ORDERED: MENTHOL/PHENOL 1 EACH UD MM PRN (11:44)
[2021-03-27] MEDS ORDERED: MAGNESIUM CITRATE 300 ML BOTTLE PO PRN (11:44)
[2021-03-27] MEDS ORDERED: IBUPROFEN 400 MG TABLET (FP) PO PRN (11:44)
[2021-03-27] MEDS ORDERED: MAGNESIUM HYDROX 2400MG/30ML ORAL SUSPENSION 30 ML CUP PO PRN (11:44)
[2021-03-27] MEDS ORDERED: chlordiazePOXIDE HCL 25 MG CAPSULE PO PRN (11:44)
[2021-03-27 11:49] VITALS: BMI 30.4
[2021-03-27] MEDS ORDERED: PATIENT'S OWN MEDICATION (NON-FORMULARY) (Levothyroxine [Synthroid -] 175 MCG Tablet) PO SCH (13:15)
[2021-03-27] MEDS: hydrOXYzine PAMOATE 25 MG CAPSULE (FP) PO SCH ×3 (14:17→22:13)
[2021-03-27] MEDS: chlordiazePOXIDE HCL 25 MG CAPSULE PO SCH ×3 (14:18→22:12)
[2021-03-27] MEDS: PRENATAL VITAMINS W/ FOLIC ACID TABLET (FP) PO SCH (14:23)
[2021-03-27] MEDS: GABAPENTIN 300 MG CAPSULE PO SCH ×2 (14:27→22:13)
[2021-03-27] MEDS: LEVOTHYROXINE 100 MCG, LEVOTHYROXINE 75 MCG PO SCH (14:39)
[2021-03-27] MEDS: NICOTINE 14 MG/24 HOURS TOPICAL PATCH TD SCH (15:03)
[2021-03-27 16:47] LABS: HEMATOCRIT 47.3 % (35.4-49); HEMOGLOBIN 15.7 GM/dL (11.7-16.9); MCH 31.5 pg (25.7-33.7); MCHC 33.2 g/dl (32.0-35.9); MEAN PLT VOLUME 8.7 fl (7.5-11.1); PLATELET COUNT 365 10^3/uL (134-434); RBC 4.98 M/mm3 (4.00-5.60); WHITE BLOOD COUNT 6.7 K/mm3 (4.0-10.0)
[2021-03-27 16:56] LABS: CALCIUM 10.3 mg/dL (8.5-10.1)
[2021-03-27 16:58] LABS: ALBUMIN 3.4 g/dl (3.4-5.0); BLOOD UREA NITROGEN 11.6 mg/dL (7-18)
[2021-03-27 17:00] LABS: CREATININE 1.5 mg/dL (0.55-1.3)
[2021-03-27 17:01] LABS: BILIRUBIN,TOTAL 0.7 mg/dL (0.2-1)
[2021-03-27] MEDS: MELATONIN 5 MG TABLETS PO SCH (22:12)
[2021-03-27] MEDS: THIAMINE HCL 100 MG TABLET (FP) PO SCH (22:16)
[2021-03-28] MEDS: GABAPENTIN 300 MG CAPSULE PO SCH ×3 (05:39→21:50)
[2021-03-28] MEDS: hydrOXYzine PAMOATE 25 MG CAPSULE (FP) PO SCH ×5 (05:39→22:53)
[2021-03-28] MEDS: chlordiazePOXIDE HCL 25 MG CAPSULE PO SCH ×4 (05:39→22:54)
[2021-03-28] MEDS: LEVOTHYROXINE 100 MCG, LEVOTHYROXINE 75 MCG PO SCH (06:28)
[2021-03-28] MEDS: PRENATAL VITAMINS W/ FOLIC ACID TABLET (FP) PO SCH (10:59)
[2021-03-28] MEDS: NICOTINE 14 MG/24 HOURS TOPICAL PATCH TD SCH (13:51)
[2021-03-28] MEDS: THIAMINE HCL 100 MG TABLET (FP) PO SCH (22:53)
[2021-03-28] MEDS: MELATONIN 5 MG TABLETS PO SCH (22:53)
[2021-03-29] MEDS: hydrOXYzine PAMOATE 25 MG CAPSULE (FP) PO SCH ×5 (05:34→22:15)
[2021-03-29] MEDS: chlordiazePOXIDE HCL 25 MG CAPSULE PO SCH ×4 (05:34→22:15)
[2021-03-29] MEDS: GABAPENTIN 300 MG CAPSULE PO SCH ×3 (05:34→22:15)
[2021-03-29] MEDS: LEVOTHYROXINE 100 MCG, LEVOTHYROXINE 75 MCG PO SCH (06:29)
[2021-03-29] MEDS: PRENATAL VITAMINS W/ FOLIC ACID TABLET (FP) PO SCH (10:30)
[2021-03-29] MEDS: NICOTINE 14 MG/24 HOURS TOPICAL PATCH TD SCH (10:30)
[2021-03-29 12:37] LABS: CALCIUM 9.2 mg/dL (8.5-10.1)
[2021-03-29] MEDS: THIAMINE HCL 100 MG TABLET (FP) PO SCH (22:15)
[2021-03-29] MEDS: MELATONIN 5 MG TABLETS PO SCH (22:15)
[2021-03-30] MEDS ORDERED: chlordiazePOXIDE HCL 10 MG CAPSULE PO PRN
[2021-03-30] MEDS: hydrOXYzine PAMOATE 25 MG CAPSULE (FP) PO SCH ×5 (05:44→22:08)
[2021-03-30] MEDS: GABAPENTIN 300 MG CAPSULE PO SCH ×3 (05:44→22:08)
[2021-03-30] MEDS: chlordiazePOXIDE HCL 10 MG CAPSULE PO SCH ×4 (05:45→22:10)
[2021-03-30] MEDS: LEVOTHYROXINE 100 MCG, LEVOTHYROXINE 75 MCG PO SCH (06:10)
[2021-03-30] MEDS: PRENATAL VITAMINS W/ FOLIC ACID TABLET (FP) PO SCH (10:24)
[2021-03-30] MEDS: NICOTINE 14 MG/24 HOURS TOPICAL PATCH TD SCH (10:25)
[2021-03-30] MEDS ORDERED: INSULIN SLIDING SCALE (NOVOLOG) 1 VIAL SQ ONE ×2 (12:05→17:13)
[2021-03-30] MEDS: INSULIN (NOVOLOG) ASPART 100 UNITS/ML 10ML VIAL SQ SCH ×3 (12:24→22:10)
[2021-03-30] MEDS: THIAMINE HCL 100 MG TABLET (FP) PO SCH (22:08)
[2021-03-30] MEDS: MELATONIN 5 MG TABLETS PO SCH (22:08)
[2021-03-31] MEDS: hydrOXYzine PAMOATE 25 MG CAPSULE (FP) PO SCH ×5 (05:37→22:05)
[2021-03-31] MEDS: chlordiazePOXIDE HCL 10 MG CAPSULE PO SCH ×2 (05:37→17:12)
[2021-03-31] MEDS: GABAPENTIN 300 MG CAPSULE PO SCH ×3 (05:37→22:05)
[2021-03-31] MEDS: LEVOTHYROXINE 100 MCG, LEVOTHYROXINE 75 MCG PO SCH (06:44)
[2021-03-31] MEDS: INSULIN (NOVOLOG) ASPART 100 UNITS/ML 10ML VIAL SQ SCH ×4 (06:45→22:06)
[2021-03-31] MEDS: PRENATAL VITAMINS W/ FOLIC ACID TABLET (FP) PO SCH (10:14)
[2021-03-31] MEDS: NICOTINE 14 MG/24 HOURS TOPICAL PATCH TD SCH (10:15)
[2021-03-31] MEDS: THIAMINE HCL 100 MG TABLET (FP) PO SCH (22:05)
[2021-03-31] MEDS: MELATONIN 5 MG TABLETS PO SCH (22:06)
[2021-04-01] MEDS ORDERED: chlordiazePOXIDE HCL 10 MG CAPSULE PO ONE (05:00)
[2021-04-01] MEDS: hydrOXYzine PAMOATE 25 MG CAPSULE (FP) PO SCH ×2 (05:30→10:56)
[2021-04-01] MEDS: GABAPENTIN 300 MG CAPSULE PO SCH (05:30)
[2021-04-01] MEDS: INSULIN (NOVOLOG) ASPART 100 UNITS/ML 10ML VIAL SQ SCH ×2 (07:19→12:37)
[2021-04-01] MEDS: LEVOTHYROXINE 100 MCG, LEVOTHYROXINE 75 MCG PO SCH (07:19)
[2021-04-01 09:01] VITALS: TEMP 97.3
[2021-04-01] MEDS: PRENATAL VITAMINS W/ FOLIC ACID TABLET (FP) PO SCH (10:56)
[2021-04-01] MEDS: NICOTINE 14 MG/24 HOURS TOPICAL PATCH TD SCH (10:57)
[2021-04-01 13:22] VITALS: BP 143/92; PULSE 96
== END 2021-04-01 13:50 | disposition other institution (70) | DRG 774 ==
LOC: YASAS 11:12 → Y3N 11:54
PROVIDERS: ADMIT Allergy & Immunology; ATTEND Allergy & Immunology
PROC: HZ2ZZZZ Detoxification Services for Substance Abuse Treatment (ICD-10-PCS; principal; 2021-03-27)
DX: F10.230 Alcohol dependence with withdrawal, uncomplicated (principal); F14.20 Cocaine dependence, uncomplicated; F12.20 Cannabis dependence, uncomplicated; F17.210 Nicotine dependence, cigarettes, uncomplicated; F19.24 Other psychoactive substance dependence with psychoactive substance-induced mood disorder; F41.9 Anxiety disorder, unspecified; F32.A Depression, unspecified; E78.5 Hyperlipidemia, unspecified; R73.03 Prediabetes; E89.0 Postprocedural hypothyroidism; Z85.850 Personal history of malignant neoplasm of thyroid; Z59.02 Unsheltered homelessness
CPT/HCPCS: 36415; 80053; 82310; 82947; 82962; 83036; 85027; 86593; 86780; C9803; Q0162; U0003; U0005

== ENCOUNTER 2021-04-01 14:08 | Inpatient (IN) | payer OTHER ==
[2021-04-01] MEDS ORDERED: ACETAMINOPHEN 325 MG TABLET (FP) PO PRN (14:54)
[2021-04-01] MEDS ORDERED: P-EPHED 60MG/TRIPROLIDI 2.5MG TABLET PO PRN (14:54)
[2021-04-01] MEDS ORDERED: MAGNESIUM HYDROX 2400MG/30ML ORAL SUSPENSION 30 ML CUP PO PRN (14:54)
[2021-04-01] MEDS ORDERED: guaiFENesin 200 MG/10 ML 10 ML UNIT-DOSE CUPS PO PRN (14:54)
[2021-04-01] MEDS ORDERED: MAG HYDROX/AL HYDROX/SIMETH 30 ML UNIT-DOSE CUP PO PRN (14:54)
[2021-04-01] MEDS ORDERED: NICOTINE POLACRILEX 2 MG GUM BUC PRN (14:54)
[2021-04-01] MEDS ORDERED: MAGNESIUM CITRATE 300 ML BOTTLE PO PRN (14:54)
[2021-04-01] MEDS ORDERED: MENTHOL/PHENOL 1 EACH UD MM PRN (14:54)
[2021-04-01 16:16] VITALS: BMI 30.4
[2021-04-01] MEDS: INSULIN SLIDING SCALE (NOVOLOG) 1 VIAL SQ SCH ×2 (17:09→21:26)
[2021-04-01] MEDS: THIAMINE HCL 100 MG TABLET (FP) PO SCH (21:21)
[2021-04-01] MEDS: MELATONIN 5 MG TABLETS PO SCH (21:21)
[2021-04-01] MEDS: hydrOXYzine PAMOATE 25 MG CAPSULE (FP) PO PRN (21:22)
[2021-04-01] MEDS: GABAPENTIN 300 MG CAPSULE PO SCH (21:23)
[2021-04-01] MEDS ORDERED: INSULIN SLIDING SCALE (NOVOLOG) 1 VIAL SQ ONE (21:26)
[2021-04-02] MEDS: GABAPENTIN 300 MG CAPSULE PO SCH ×3 (06:40→21:02)
[2021-04-02] MEDS: INSULIN SLIDING SCALE (NOVOLOG) 1 VIAL SQ SCH ×3 (06:44→16:33)
[2021-04-02] MEDS ORDERED: LEVOTHYROXINE NA 150 MCG TABLET PO SCH (07:00)
[2021-04-02] MEDS: LEVOTHYROXINE 75 MCG, LEVOTHYROXINE 100 MCG PO SCH (07:43)
[2021-04-02] MEDS: PRENATAL VITAMINS W/ FOLIC ACID TABLET (FP) PO SCH (10:38)
[2021-04-02] MEDS ORDERED: INSULIN SLIDING SCALE (NOVOLOG) 1 VIAL SQ SCH (11:19)
[2021-04-02 13:47] LABS: BLOOD UREA NITROGEN 16.4 mg/dL (7-18)
[2021-04-02 13:51] LABS: CREATININE 0.8 mg/dL (0.55-1.3)
[2021-04-02] MEDS: THIAMINE HCL 100 MG TABLET (FP) PO SCH (21:02)
[2021-04-02] MEDS: MELATONIN 5 MG TABLETS PO SCH (21:02)
[2021-04-03] MEDS: GABAPENTIN 300 MG CAPSULE PO SCH ×2 (05:56→12:57)
[2021-04-03] MEDS: LEVOTHYROXINE 75 MCG, LEVOTHYROXINE 100 MCG PO SCH (06:01)
[2021-04-03] MEDS: INSULIN SLIDING SCALE (NOVOLOG) 1 VIAL SQ SCH ×2 (06:02→16:34)
[2021-04-03] MEDS: PRENATAL VITAMINS W/ FOLIC ACID TABLET (FP) PO SCH (09:47)
[2021-04-03] MEDS: KETOCONAZOLE 2 % SHAMPOO 120 ML BOTTLE TP SCH (10:29)
[2021-04-03] MEDS: hydrOXYzine PAMOATE 25 MG CAPSULE (FP) PO PRN (13:02)
[2021-04-03] MEDS: LOPERAMIDE HCL 2 MG CAPSULE PO PRN (16:31)
[2021-04-03] MEDS: hydrOXYzine PAMOATE 50 MG CAPSULE (FP) PO PRN ×2 (16:31→21:17)
[2021-04-03] MEDS: HYDROCORTISONE 0.5% TOPICAL CREAM 30 GM TUBE TP PRN (16:32)
[2021-04-03] MEDS: SUVOREXANT 10 MG TABLET PO PRN (21:15)
[2021-04-03] MEDS: THIAMINE HCL 100 MG TABLET (FP) PO SCH (21:15)
[2021-04-03] MEDS: GABAPENTIN 400 MG CAPSULE PO SCH (21:16)
[2021-04-04] MEDS: GABAPENTIN 400 MG CAPSULE PO SCH ×3 (06:25→21:17)
[2021-04-04] MEDS: hydrOXYzine PAMOATE 50 MG CAPSULE (FP) PO PRN ×4 (06:26→21:17)
[2021-04-04] MEDS: INSULIN SLIDING SCALE (NOVOLOG) 1 VIAL SQ SCH ×2 (06:26→16:30)
[2021-04-04] MEDS: LEVOTHYROXINE 75 MCG, LEVOTHYROXINE 100 MCG PO SCH (06:27)
[2021-04-04] MEDS: PRENATAL VITAMINS W/ FOLIC ACID TABLET (FP) PO SCH (11:11)
[2021-04-04] MEDS: ESCITALOPRAM OXALATE 10 MG TABLET PO SCH (11:11)
[2021-04-04] MEDS: COLLOIDAL OATMEAL 1 BAR EACH TP PRN (11:35)
[2021-04-04] MEDS: HYDROCORTISONE 0.5% TOPICAL CREAM 30 GM TUBE TP PRN (11:37)
[2021-04-04] MEDS: LOPERAMIDE HCL 2 MG CAPSULE PO PRN (15:18)
[2021-04-04] MEDS: SUVOREXANT 10 MG TABLET PO PRN (21:17)
[2021-04-04] MEDS: THIAMINE HCL 100 MG TABLET (FP) PO SCH (21:17)
[2021-04-05] MEDS: INSULIN SLIDING SCALE (NOVOLOG) 1 VIAL SQ SCH ×2 (06:31→16:47)
[2021-04-05] MEDS: GABAPENTIN 400 MG CAPSULE PO SCH ×3 (06:31→21:21)
[2021-04-05] MEDS: LEVOTHYROXINE 75 MCG, LEVOTHYROXINE 100 MCG PO SCH (06:31)
[2021-04-05] MEDS: PRENATAL VITAMINS W/ FOLIC ACID TABLET (FP) PO SCH (10:09)
[2021-04-05] MEDS: ESCITALOPRAM OXALATE 10 MG TABLET PO SCH (10:09)
[2021-04-05] MEDS: hydrOXYzine PAMOATE 50 MG CAPSULE (FP) PO PRN ×2 (14:08→21:21)
[2021-04-05] MEDS: COLLOIDAL OATMEAL 1 BAR EACH TP PRN (16:48)
[2021-04-05] MEDS: THIAMINE HCL 100 MG TABLET (FP) PO SCH (21:21)
[2021-04-06] MEDS: LEVOTHYROXINE 75 MCG, LEVOTHYROXINE 100 MCG PO SCH (06:47)
[2021-04-06] MEDS: GABAPENTIN 400 MG CAPSULE PO SCH ×3 (06:47→21:14)
[2021-04-06] MEDS: hydrOXYzine PAMOATE 50 MG CAPSULE (FP) PO PRN ×3 (06:48→21:13)
[2021-04-06] MEDS: INSULIN SLIDING SCALE (NOVOLOG) 1 VIAL SQ SCH ×2 (06:50→17:18)
[2021-04-06] MEDS: PRENATAL VITAMINS W/ FOLIC ACID TABLET (FP) PO SCH (10:06)
[2021-04-06] MEDS: ESCITALOPRAM OXALATE 10 MG TABLET PO SCH (10:06)
[2021-04-06] MEDS: HYDROCORTISONE 0.5% TOPICAL CREAM 30 GM TUBE TP PRN (10:08)
[2021-04-06] MEDS: KETOCONAZOLE 2 % SHAMPOO 120 ML BOTTLE TP SCH (10:08)
[2021-04-06] MEDS: SUVOREXANT 10 MG TABLET PO PRN (21:14)
[2021-04-06] MEDS: THIAMINE HCL 100 MG TABLET (FP) PO SCH (21:14)
[2021-04-07] MEDS: GABAPENTIN 400 MG CAPSULE PO SCH ×3 (06:08→21:13)
[2021-04-07] MEDS: hydrOXYzine PAMOATE 50 MG CAPSULE (FP) PO PRN ×3 (06:09→21:14)
[2021-04-07] MEDS: INSULIN SLIDING SCALE (NOVOLOG) 1 VIAL SQ SCH ×2 (06:11→16:38)
[2021-04-07] MEDS: LEVOTHYROXINE 75 MCG, LEVOTHYROXINE 100 MCG PO SCH (06:36)
[2021-04-07] MEDS: PRENATAL VITAMINS W/ FOLIC ACID TABLET (FP) PO SCH (09:50)
[2021-04-07] MEDS: ESCITALOPRAM OXALATE 10 MG TABLET PO SCH (09:50)
[2021-04-07] MEDS: THIAMINE HCL 100 MG TABLET (FP) PO SCH (21:13)
[2021-04-07] MEDS: SUVOREXANT 10 MG TABLET PO PRN (21:13)
[2021-04-08] MEDS: GABAPENTIN 400 MG CAPSULE PO SCH ×3 (06:09→21:09)
[2021-04-08] MEDS: LEVOTHYROXINE 75 MCG, LEVOTHYROXINE 100 MCG PO SCH (06:12)
[2021-04-08] MEDS: INSULIN SLIDING SCALE (NOVOLOG) 1 VIAL SQ SCH ×2 (06:12→16:53)
[2021-04-08] MEDS: PRENATAL VITAMINS W/ FOLIC ACID TABLET (FP) PO SCH (09:55)
[2021-04-08] MEDS: ESCITALOPRAM OXALATE 10 MG TABLET PO SCH (09:56)
[2021-04-08] MEDS: hydrOXYzine PAMOATE 50 MG CAPSULE (FP) PO PRN ×2 (09:57→21:09)
[2021-04-08] MEDS: THIAMINE HCL 100 MG TABLET (FP) PO SCH (21:09)
[2021-04-08] MEDS: SUVOREXANT 10 MG TABLET PO PRN (21:09)
[2021-04-09] MEDS: IBUPROFEN 400 MG TABLET (FP) PO PRN (04:54)
[2021-04-09] MEDS: GABAPENTIN 400 MG CAPSULE PO SCH ×3 (06:06→21:16)
[2021-04-09] MEDS: LEVOTHYROXINE 75 MCG, LEVOTHYROXINE 100 MCG PO SCH (06:07)
[2021-04-09] MEDS: INSULIN SLIDING SCALE (NOVOLOG) 1 VIAL SQ SCH ×2 (06:20→16:43)
[2021-04-09] MEDS: KETOCONAZOLE 2 % SHAMPOO 120 ML BOTTLE TP SCH (11:41)
[2021-04-09] MEDS: PRENATAL VITAMINS W/ FOLIC ACID TABLET (FP) PO SCH (11:42)
[2021-04-09] MEDS: hydrOXYzine PAMOATE 50 MG CAPSULE (FP) PO PRN ×2 (11:43→21:17)
[2021-04-09] MEDS: ESCITALOPRAM OXALATE 10 MG TABLET PO SCH (11:43)
[2021-04-09] MEDS: THIAMINE HCL 100 MG TABLET (FP) PO SCH (21:16)
[2021-04-09] MEDS: SUVOREXANT 10 MG TABLET PO PRN (21:16)
[2021-04-09] MEDS: HYDROCORTISONE 0.5% TOPICAL CREAM 30 GM TUBE TP PRN (21:18)
[2021-04-10] MEDS: LEVOTHYROXINE 75 MCG, LEVOTHYROXINE 100 MCG PO SCH (06:11)
[2021-04-10] MEDS: GABAPENTIN 400 MG CAPSULE PO SCH ×3 (06:11→21:17)
[2021-04-10] MEDS: INSULIN SLIDING SCALE (NOVOLOG) 1 VIAL SQ SCH ×2 (06:12→16:28)
[2021-04-10] MEDS: PRENATAL VITAMINS W/ FOLIC ACID TABLET (FP) PO SCH (09:31)
[2021-04-10] MEDS: hydrOXYzine PAMOATE 50 MG CAPSULE (FP) PO PRN ×3 (09:31→21:18)
[2021-04-10] MEDS: ESCITALOPRAM OXALATE 10 MG TABLET PO SCH (09:31)
[2021-04-10] MEDS: BACITRACIN 0.9 GM PACKET TP SCH ×2 (15:34→21:17)
[2021-04-10] MEDS: THIAMINE HCL 100 MG TABLET (FP) PO SCH (21:17)
[2021-04-10] MEDS: SUVOREXANT 10 MG TABLET PO PRN (21:18)
[2021-04-11] MEDS: GABAPENTIN 400 MG CAPSULE PO SCH ×3 (06:19→21:08)
[2021-04-11] MEDS: INSULIN SLIDING SCALE (NOVOLOG) 1 VIAL SQ SCH ×2 (06:21→16:45)
[2021-04-11] MEDS: LEVOTHYROXINE 75 MCG, LEVOTHYROXINE 100 MCG PO SCH (06:21)
[2021-04-11] MEDS: BACITRACIN 0.9 GM PACKET TP SCH ×2 (10:19→21:08)
[2021-04-11] MEDS: hydrOXYzine PAMOATE 50 MG CAPSULE (FP) PO PRN ×3 (10:19→21:09)
[2021-04-11] MEDS: ESCITALOPRAM OXALATE 10 MG TABLET PO SCH (10:19)
[2021-04-11] MEDS: PRENATAL VITAMINS W/ FOLIC ACID TABLET (FP) PO SCH (10:20)
[2021-04-11] MEDS: SUVOREXANT 10 MG TABLET PO PRN (21:08)
[2021-04-11] MEDS: THIAMINE HCL 100 MG TABLET (FP) PO SCH (21:08)
[2021-04-12] MEDS: LEVOTHYROXINE 75 MCG, LEVOTHYROXINE 100 MCG PO SCH (06:29)
[2021-04-12] MEDS: GABAPENTIN 400 MG CAPSULE PO SCH ×3 (06:29→21:14)
[2021-04-12] MEDS: INSULIN SLIDING SCALE (NOVOLOG) 1 VIAL SQ SCH ×2 (06:38→16:37)
[2021-04-12] MEDS: ESCITALOPRAM OXALATE 10 MG TABLET PO SCH (09:24)
[2021-04-12] MEDS: BACITRACIN 0.9 GM PACKET TP SCH ×2 (09:24→21:14)
[2021-04-12] MEDS: PRENATAL VITAMINS W/ FOLIC ACID TABLET (FP) PO SCH (09:24)
[2021-04-12] MEDS: KETOCONAZOLE 2 % SHAMPOO 120 ML BOTTLE TP SCH (09:24)
[2021-04-12] MEDS: hydrOXYzine PAMOATE 50 MG CAPSULE (FP) PO PRN ×2 (13:47→21:15)
[2021-04-12] MEDS: THIAMINE HCL 100 MG TABLET (FP) PO SCH (21:14)
[2021-04-12] MEDS: SUVOREXANT 10 MG TABLET PO PRN (21:15)
[2021-04-13] MEDS: GABAPENTIN 400 MG CAPSULE PO SCH ×3 (06:17→21:01)
[2021-04-13] MEDS: LEVOTHYROXINE 75 MCG, LEVOTHYROXINE 100 MCG PO SCH (06:17)
[2021-04-13] MEDS: INSULIN SLIDING SCALE (NOVOLOG) 1 VIAL SQ SCH ×2 (06:19→16:39)
[2021-04-13] MEDS: PRENATAL VITAMINS W/ FOLIC ACID TABLET (FP) PO SCH (09:44)
[2021-04-13] MEDS: BACITRACIN 0.9 GM PACKET TP SCH ×2 (09:44→21:01)
[2021-04-13] MEDS: ESCITALOPRAM OXALATE 10 MG TABLET PO SCH (09:44)
[2021-04-13] MEDS: hydrOXYzine PAMOATE 50 MG CAPSULE (FP) PO PRN ×2 (09:45→21:02)
[2021-04-13] MEDS: THIAMINE HCL 100 MG TABLET (FP) PO SCH (21:01)
[2021-04-13] MEDS: SUVOREXANT 10 MG TABLET PO PRN (21:02)
[2021-04-14] MEDS: GABAPENTIN 400 MG CAPSULE PO SCH ×3 (06:19→21:08)
[2021-04-14] MEDS: LEVOTHYROXINE 75 MCG, LEVOTHYROXINE 100 MCG PO SCH (06:19)
[2021-04-14] MEDS: INSULIN SLIDING SCALE (NOVOLOG) 1 VIAL SQ SCH ×2 (06:20→16:46)
[2021-04-14] MEDS: BACITRACIN 0.9 GM PACKET TP SCH ×2 (09:28→21:09)
[2021-04-14] MEDS: ESCITALOPRAM OXALATE 10 MG TABLET PO SCH (09:28)
[2021-04-14] MEDS: PRENATAL VITAMINS W/ FOLIC ACID TABLET (FP) PO SCH (09:28)
[2021-04-14] MEDS: hydrOXYzine PAMOATE 50 MG CAPSULE (FP) PO PRN ×2 (09:29→21:08)
[2021-04-14] MEDS: THIAMINE HCL 100 MG TABLET (FP) PO SCH (21:08)
[2021-04-14] MEDS: SUVOREXANT 10 MG TABLET PO PRN (21:09)
[2021-04-15] MEDS: GABAPENTIN 400 MG CAPSULE PO SCH ×3 (06:16→21:14)
[2021-04-15] MEDS: INSULIN SLIDING SCALE (NOVOLOG) 1 VIAL SQ SCH ×2 (06:16→17:06)
[2021-04-15] MEDS: LEVOTHYROXINE 75 MCG, LEVOTHYROXINE 100 MCG PO SCH (06:17)
[2021-04-15] MEDS: KETOCONAZOLE 2 % SHAMPOO 120 ML BOTTLE TP SCH (09:30)
[2021-04-15] MEDS: BACITRACIN 0.9 GM PACKET TP SCH ×2 (09:30→21:14)
[2021-04-15] MEDS: ESCITALOPRAM OXALATE 10 MG TABLET PO SCH (09:30)
[2021-04-15] MEDS: PRENATAL VITAMINS W/ FOLIC ACID TABLET (FP) PO SCH (09:30)
[2021-04-15] MEDS: hydrOXYzine PAMOATE 50 MG CAPSULE (FP) PO PRN ×2 (09:31→21:14)
[2021-04-15] MEDS: THIAMINE HCL 100 MG TABLET (FP) PO SCH (21:14)
[2021-04-15] MEDS: SUVOREXANT 10 MG TABLET PO PRN (21:15)
[2021-04-16] MEDS: COLLOIDAL OATMEAL 1 BAR EACH TP PRN (06:52)
[2021-04-16] MEDS: GABAPENTIN 400 MG CAPSULE PO SCH ×3 (06:52→21:03)
[2021-04-16] MEDS: LEVOTHYROXINE 75 MCG, LEVOTHYROXINE 100 MCG PO SCH (06:55)
[2021-04-16] MEDS: INSULIN SLIDING SCALE (NOVOLOG) 1 VIAL SQ SCH ×2 (06:57→17:06)
[2021-04-16] MEDS: PRENATAL VITAMINS W/ FOLIC ACID TABLET (FP) PO SCH (09:37)
[2021-04-16] MEDS: ESCITALOPRAM OXALATE 10 MG TABLET PO SCH (09:37)
[2021-04-16] MEDS: BACITRACIN 0.9 GM PACKET TP SCH ×2 (09:37→21:03)
[2021-04-16] MEDS: hydrOXYzine PAMOATE 50 MG CAPSULE (FP) PO PRN ×2 (12:35→21:03)
[2021-04-16] MEDS: SUVOREXANT 10 MG TABLET PO PRN (21:02)
[2021-04-16] MEDS: THIAMINE HCL 100 MG TABLET (FP) PO SCH (21:03)
[2021-04-17] MEDS: LEVOTHYROXINE 75 MCG, LEVOTHYROXINE 100 MCG PO SCH (06:17)
[2021-04-17] MEDS: GABAPENTIN 400 MG CAPSULE PO SCH ×3 (06:17→21:28)
[2021-04-17] MEDS: INSULIN SLIDING SCALE (NOVOLOG) 1 VIAL SQ SCH ×2 (06:21→16:38)
[2021-04-17] MEDS: hydrOXYzine PAMOATE 50 MG CAPSULE (FP) PO PRN ×2 (09:44→21:30)
[2021-04-17] MEDS: PRENATAL VITAMINS W/ FOLIC ACID TABLET (FP) PO SCH (09:44)
[2021-04-17] MEDS: ESCITALOPRAM OXALATE 10 MG TABLET PO SCH (09:45)
[2021-04-17] MEDS: BACITRACIN 0.9 GM PACKET TP SCH ×2 (09:45→21:29)
[2021-04-17] MEDS: THIAMINE HCL 100 MG TABLET (FP) PO SCH (21:28)
[2021-04-17] MEDS: SUVOREXANT 10 MG TABLET PO PRN (21:31)
[2021-04-18] MEDS: GABAPENTIN 400 MG CAPSULE PO SCH ×3 (06:42→21:31)
[2021-04-18] MEDS: LEVOTHYROXINE 75 MCG, LEVOTHYROXINE 100 MCG PO SCH (06:42)
[2021-04-18] MEDS: INSULIN SLIDING SCALE (NOVOLOG) 1 VIAL SQ SCH ×2 (06:44→17:01)
[2021-04-18] MEDS: BACITRACIN 0.9 GM PACKET TP SCH ×2 (09:32→21:31)
[2021-04-18] MEDS: KETOCONAZOLE 2 % SHAMPOO 120 ML BOTTLE TP SCH (09:32)
[2021-04-18] MEDS: ESCITALOPRAM OXALATE 10 MG TABLET PO SCH (09:33)
[2021-04-18] MEDS: PRENATAL VITAMINS W/ FOLIC ACID TABLET (FP) PO SCH (09:33)
[2021-04-18] MEDS: hydrOXYzine PAMOATE 50 MG CAPSULE (FP) PO PRN ×2 (09:34→21:30)
[2021-04-18] MEDS ORDERED: MODERNA COVID-19 VACC,MRNA/PF 50 MCG/0.25 ML EACH IM ONE (14:00)
[2021-04-18] MEDS: THIAMINE HCL 100 MG TABLET (FP) PO SCH (21:30)
[2021-04-18] MEDS: SUVOREXANT 10 MG TABLET PO PRN (21:30)
[2021-04-19] MEDS: GABAPENTIN 400 MG CAPSULE PO SCH ×3 (06:25→21:50)
[2021-04-19] MEDS: LEVOTHYROXINE 75 MCG, LEVOTHYROXINE 100 MCG PO SCH (06:27)
[2021-04-19] MEDS: INSULIN SLIDING SCALE (NOVOLOG) 1 VIAL SQ SCH ×2 (06:40→16:50)
[2021-04-19] MEDS: PRENATAL VITAMINS W/ FOLIC ACID TABLET (FP) PO SCH (09:22)
[2021-04-19] MEDS: BACITRACIN 0.9 GM PACKET TP SCH ×2 (09:22→23:16)
[2021-04-19] MEDS: ESCITALOPRAM OXALATE 10 MG TABLET PO SCH (09:22)
[2021-04-19] MEDS: IBUPROFEN 400 MG TABLET (FP) PO PRN (12:08)
[2021-04-19] MEDS: hydrOXYzine PAMOATE 50 MG CAPSULE (FP) PO PRN ×2 (13:33→21:50)
[2021-04-19] MEDS: THIAMINE HCL 100 MG TABLET (FP) PO SCH (21:50)
[2021-04-19] MEDS: SUVOREXANT 10 MG TABLET PO PRN (21:51)
[2021-04-20] MEDS ORDERED: PT OWN MED DRAWER 7, Y5N ONE (05:57)
[2021-04-20] MEDS: LEVOTHYROXINE 75 MCG, LEVOTHYROXINE 100 MCG PO SCH (06:28)
[2021-04-20] MEDS: INSULIN SLIDING SCALE (NOVOLOG) 1 VIAL SQ SCH ×2 (06:28→16:44)
[2021-04-20] MEDS: GABAPENTIN 400 MG CAPSULE PO SCH ×3 (06:28→21:32)
[2021-04-20] MEDS: BACITRACIN 0.9 GM PACKET TP SCH ×2 (10:41→21:33)
[2021-04-20] MEDS: ESCITALOPRAM OXALATE 10 MG TABLET PO SCH (10:41)
[2021-04-20] MEDS: PRENATAL VITAMINS W/ FOLIC ACID TABLET (FP) PO SCH (10:41)
[2021-04-20] MEDS: hydrOXYzine PAMOATE 50 MG CAPSULE (FP) PO PRN ×2 (14:46→21:33)
[2021-04-20] MEDS: SUVOREXANT 10 MG TABLET PO PRN (21:32)
[2021-04-20] MEDS: THIAMINE HCL 100 MG TABLET (FP) PO SCH (21:32)
[2021-04-21] MEDS ORDERED: PT OWN MED DRAWER 7, Y5N ONE (01:56)
[2021-04-21] MEDS: INSULIN SLIDING SCALE (NOVOLOG) 1 VIAL SQ SCH ×2 (06:38→16:26)
[2021-04-21] MEDS: LEVOTHYROXINE 75 MCG, LEVOTHYROXINE 100 MCG PO SCH (06:38)
[2021-04-21] MEDS: GABAPENTIN 400 MG CAPSULE PO SCH ×3 (06:38→21:12)
[2021-04-21] MEDS: KETOCONAZOLE 2 % SHAMPOO 120 ML BOTTLE TP SCH (10:00)
[2021-04-21] MEDS: PRENATAL VITAMINS W/ FOLIC ACID TABLET (FP) PO SCH (10:01)
[2021-04-21] MEDS: ESCITALOPRAM OXALATE 10 MG TABLET PO SCH (10:01)
[2021-04-21] MEDS: BACITRACIN 0.9 GM PACKET TP SCH ×2 (10:02→21:13)
[2021-04-21] MEDS: hydrOXYzine PAMOATE 50 MG CAPSULE (FP) PO PRN ×2 (10:03→21:13)
[2021-04-21] MEDS: IBUPROFEN 400 MG TABLET (FP) PO PRN (10:04)
[2021-04-21] MEDS: SUVOREXANT 10 MG TABLET PO PRN (21:12)
[2021-04-21] MEDS: THIAMINE HCL 100 MG TABLET (FP) PO SCH (21:12)
[2021-04-22] MEDS ORDERED: PT OWN MED DRAWER 7, Y5N ONE (01:45)
[2021-04-22] MEDS: GABAPENTIN 400 MG CAPSULE PO SCH ×3 (06:53→21:04)
[2021-04-22] MEDS: INSULIN SLIDING SCALE (NOVOLOG) 1 VIAL SQ SCH ×2 (06:57→16:29)
[2021-04-22] MEDS: LEVOTHYROXINE 75 MCG, LEVOTHYROXINE 100 MCG PO SCH (06:57)
[2021-04-22] MEDS: PRENATAL VITAMINS W/ FOLIC ACID TABLET (FP) PO SCH (09:39)
[2021-04-22] MEDS: BACITRACIN 0.9 GM PACKET TP SCH ×2 (09:39→21:05)
[2021-04-22] MEDS: ESCITALOPRAM OXALATE 10 MG TABLET PO SCH (09:39)
[2021-04-22] MEDS: hydrOXYzine PAMOATE 50 MG CAPSULE (FP) PO PRN ×2 (09:39→21:04)
[2021-04-22] MEDS: SUVOREXANT 10 MG TABLET PO PRN (21:04)
[2021-04-22] MEDS: THIAMINE HCL 100 MG TABLET (FP) PO SCH (21:04)
[2021-04-23] MEDS ORDERED: PT OWN MED DRAWER 7, Y5N ONE (01:42)
[2021-04-23] MEDS: GABAPENTIN 400 MG CAPSULE PO SCH ×3 (06:25→21:17)
[2021-04-23] MEDS: INSULIN SLIDING SCALE (NOVOLOG) 1 VIAL SQ SCH ×2 (06:41→16:45)
[2021-04-23] MEDS: LEVOTHYROXINE 75 MCG, LEVOTHYROXINE 100 MCG PO SCH (06:42)
[2021-04-23] MEDS: ESCITALOPRAM OXALATE 10 MG TABLET PO SCH (10:09)
[2021-04-23] MEDS: BACITRACIN 0.9 GM PACKET TP SCH ×2 (10:09→21:17)
[2021-04-23] MEDS: PRENATAL VITAMINS W/ FOLIC ACID TABLET (FP) PO SCH (10:09)
[2021-04-23] MEDS: hydrOXYzine PAMOATE 50 MG CAPSULE (FP) PO PRN ×2 (10:10→21:21)
[2021-04-23] MEDS: THIAMINE HCL 100 MG TABLET (FP) PO SCH (21:17)
[2021-04-23] MEDS: SUVOREXANT 10 MG TABLET PO PRN (21:20)
[2021-04-24] MEDS ORDERED: PT OWN MED DRAWER 7, Y5N ONE (03:37)
[2021-04-24] MEDS ORDERED: LEVOTHYROXINE NA 100 MCG TABLET (FP) ONE (04:20)
[2021-04-24] MEDS ORDERED: LEVOTHYROXINE NA 25 MCG TABLET (FP) ONE (04:20)
[2021-04-24] MEDS: GABAPENTIN 400 MG CAPSULE PO SCH ×3 (06:27→21:14)
[2021-04-24] MEDS: LEVOTHYROXINE 75 MCG, LEVOTHYROXINE 100 MCG PO SCH (06:27)
[2021-04-24] MEDS: INSULIN SLIDING SCALE (NOVOLOG) 1 VIAL SQ SCH ×2 (06:29→17:20)
[2021-04-24] MEDS: KETOCONAZOLE 2 % SHAMPOO 120 ML BOTTLE TP SCH (10:10)
[2021-04-24] MEDS: ESCITALOPRAM OXALATE 10 MG TABLET PO SCH (10:10)
[2021-04-24] MEDS: PRENATAL VITAMINS W/ FOLIC ACID TABLET (FP) PO SCH (10:10)
[2021-04-24] MEDS: hydrOXYzine PAMOATE 50 MG CAPSULE (FP) PO PRN ×2 (10:12→21:14)
[2021-04-24] MEDS: COLLOIDAL OATMEAL 1 BAR EACH TP PRN (10:12)
[2021-04-24] MEDS: BACITRACIN 0.9 GM PACKET TP SCH ×2 (10:52→21:14)
[2021-04-24] MEDS: SUVOREXANT 10 MG TABLET PO PRN (21:13)
[2021-04-24] MEDS: THIAMINE HCL 100 MG TABLET (FP) PO SCH (21:14)
[2021-04-25] MEDS ORDERED: LEVOTHYROXINE NA 100 MCG TABLET (FP) ONE (05:51)
[2021-04-25] MEDS ORDERED: LEVOTHYROXINE NA 25 MCG TABLET (FP) ONE (05:51)
[2021-04-25] MEDS: LEVOTHYROXINE 75 MCG, LEVOTHYROXINE 100 MCG PO SCH (06:31)
[2021-04-25] MEDS: GABAPENTIN 400 MG CAPSULE PO SCH ×3 (06:31→21:08)
[2021-04-25] MEDS: INSULIN SLIDING SCALE (NOVOLOG) 1 VIAL SQ SCH ×2 (06:33→16:24)
[2021-04-25] MEDS: PRENATAL VITAMINS W/ FOLIC ACID TABLET (FP) PO SCH (09:14)
[2021-04-25] MEDS: ESCITALOPRAM OXALATE 10 MG TABLET PO SCH (09:14)
[2021-04-25] MEDS: BACITRACIN 0.9 GM PACKET TP SCH ×2 (09:15→21:09)
[2021-04-25] MEDS: hydrOXYzine PAMOATE 50 MG CAPSULE (FP) PO PRN ×2 (13:49→21:09)
[2021-04-25] MEDS: THIAMINE HCL 100 MG TABLET (FP) PO SCH (21:09)
[2021-04-25] MEDS: SUVOREXANT 10 MG TABLET PO PRN (21:09)
[2021-04-26] MEDS: GABAPENTIN 400 MG CAPSULE PO SCH ×3 (06:33→21:14)
[2021-04-26] MEDS: LEVOTHYROXINE 75 MCG, LEVOTHYROXINE 100 MCG PO SCH (06:33)
[2021-04-26] MEDS: INSULIN SLIDING SCALE (NOVOLOG) 1 VIAL SQ SCH ×2 (06:40→17:18)
[2021-04-26] MEDS: BACITRACIN 0.9 GM PACKET TP SCH ×2 (09:54→21:15)
[2021-04-26] MEDS: PRENATAL VITAMINS W/ FOLIC ACID TABLET (FP) PO SCH (09:54)
[2021-04-26] MEDS: ESCITALOPRAM OXALATE 10 MG TABLET PO SCH (09:54)
[2021-04-26] MEDS: hydrOXYzine PAMOATE 50 MG CAPSULE (FP) PO PRN ×2 (09:55→21:15)
[2021-04-26] MEDS: THIAMINE HCL 100 MG TABLET (FP) PO SCH (21:14)
[2021-04-26] MEDS: SUVOREXANT 10 MG TABLET PO PRN (21:14)
[2021-04-27] MEDS: GABAPENTIN 400 MG CAPSULE PO SCH ×3 (06:21→21:41)
[2021-04-27] MEDS: INSULIN SLIDING SCALE (NOVOLOG) 1 VIAL SQ SCH ×2 (06:21→17:04)
[2021-04-27] MEDS: LEVOTHYROXINE 75 MCG, LEVOTHYROXINE 100 MCG PO SCH (06:22)
[2021-04-27] MEDS ORDERED: INSULIN SLIDING SCALE (NOVOLOG) 1 VIAL SQ ONE (06:31)
[2021-04-27] MEDS: BACITRACIN 0.9 GM PACKET TP SCH ×2 (09:55→21:40)
[2021-04-27] MEDS: ESCITALOPRAM OXALATE 10 MG TABLET PO SCH (09:55)
[2021-04-27] MEDS: KETOCONAZOLE 2 % SHAMPOO 120 ML BOTTLE TP SCH (09:55)
[2021-04-27] MEDS: PRENATAL VITAMINS W/ FOLIC ACID TABLET (FP) PO SCH (09:55)
[2021-04-27] MEDS: hydrOXYzine PAMOATE 50 MG CAPSULE (FP) PO PRN ×2 (09:56→21:41)
[2021-04-27] MEDS: THIAMINE HCL 100 MG TABLET (FP) PO SCH (21:40)
[2021-04-27] MEDS: SUVOREXANT 10 MG TABLET PO PRN (21:40)
[2021-04-28] MEDS: GABAPENTIN 400 MG CAPSULE PO SCH ×3 (06:16→21:36)
[2021-04-28] MEDS: LEVOTHYROXINE 75 MCG, LEVOTHYROXINE 100 MCG PO SCH (06:16)
[2021-04-28] MEDS: INSULIN SLIDING SCALE (NOVOLOG) 1 VIAL SQ SCH ×2 (06:17→16:48)
[2021-04-28] MEDS: PRENATAL VITAMINS W/ FOLIC ACID TABLET (FP) PO SCH (10:29)
[2021-04-28] MEDS: ESCITALOPRAM OXALATE 10 MG TABLET PO SCH (10:29)
[2021-04-28] MEDS: BACITRACIN 0.9 GM PACKET TP SCH ×2 (10:30→21:36)
[2021-04-28] MEDS: hydrOXYzine PAMOATE 50 MG CAPSULE (FP) PO PRN ×2 (10:31→21:37)
[2021-04-28] MEDS: SUVOREXANT 10 MG TABLET PO PRN (21:36)
[2021-04-28] MEDS: THIAMINE HCL 100 MG TABLET (FP) PO SCH (21:36)
[2021-04-29] MEDS: GABAPENTIN 400 MG CAPSULE PO SCH ×3 (06:19→21:55)
[2021-04-29] MEDS: LEVOTHYROXINE 75 MCG, LEVOTHYROXINE 100 MCG PO SCH (06:20)
[2021-04-29] MEDS: INSULIN SLIDING SCALE (NOVOLOG) 1 VIAL SQ SCH ×2 (06:21→17:06)
[2021-04-29] MEDS: BACITRACIN 0.9 GM PACKET TP SCH ×2 (10:56→21:55)
[2021-04-29] MEDS: ESCITALOPRAM OXALATE 10 MG TABLET PO SCH (10:56)
[2021-04-29] MEDS: PRENATAL VITAMINS W/ FOLIC ACID TABLET (FP) PO SCH (10:56)
[2021-04-29] MEDS: hydrOXYzine PAMOATE 50 MG CAPSULE (FP) PO PRN ×2 (10:58→21:55)
[2021-04-29] MEDS: SUVOREXANT 10 MG TABLET PO PRN (21:55)
[2021-04-29] MEDS: THIAMINE HCL 100 MG TABLET (FP) PO SCH (21:55)
[2021-04-30] MEDS: GABAPENTIN 400 MG CAPSULE PO SCH ×3 (06:20→21:41)
[2021-04-30] MEDS: LEVOTHYROXINE 75 MCG, LEVOTHYROXINE 100 MCG PO SCH (06:21)
[2021-04-30] MEDS: INSULIN SLIDING SCALE (NOVOLOG) 1 VIAL SQ SCH ×2 (06:23→17:06)
[2021-04-30 08:23] VITALS: TEMP 97.8
[2021-04-30] MEDS: PRENATAL VITAMINS W/ FOLIC ACID TABLET (FP) PO SCH (10:15)
[2021-04-30] MEDS: ESCITALOPRAM OXALATE 10 MG TABLET PO SCH (10:15)
[2021-04-30] MEDS: BACITRACIN 0.9 GM PACKET TP SCH ×2 (10:15→21:44)
[2021-04-30] MEDS: KETOCONAZOLE 2 % SHAMPOO 120 ML BOTTLE TP SCH (10:16)
[2021-04-30] MEDS: THIAMINE HCL 100 MG TABLET (FP) PO SCH (21:41)
[2021-04-30] MEDS: hydrOXYzine PAMOATE 50 MG CAPSULE (FP) PO PRN (21:43)
[2021-04-30] MEDS ORDERED: SUVOREXANT 10 MG TABLET PO PRN (22:00)
[2021-05-01] MEDS: LEVOTHYROXINE 75 MCG, LEVOTHYROXINE 100 MCG PO SCH (06:19)
[2021-05-01] MEDS: INSULIN SLIDING SCALE (NOVOLOG) 1 VIAL SQ SCH (06:19)
[2021-05-01] MEDS: GABAPENTIN 400 MG CAPSULE PO SCH (06:19)
[2021-05-01 07:18] VITALS: BP 124/89; PULSE 84
[2021-05-01] MEDS: PRENATAL VITAMINS W/ FOLIC ACID TABLET (FP) PO SCH (09:47)
[2021-05-01] MEDS: ESCITALOPRAM OXALATE 10 MG TABLET PO SCH (09:48)
[2021-05-01] MEDS: BACITRACIN 0.9 GM PACKET TP SCH (09:48)
== END 2021-05-01 09:55 | disposition other institution (70) | DRG 772 ==
LOC: YASAS 14:08 → Y3W 14:11 → Y5N 04-27 13:54
PROVIDERS: ADMIT Allergy & Immunology; ATTEND Allergy & Immunology
PROC: HZ42ZZZ Group Counseling for Substance Abuse Treatment, Cognitive-Behavioral (ICD-10-PCS; principal; 2021-04-01)
DX: F11.20 Opioid dependence, uncomplicated (principal); F10.20 Alcohol dependence, uncomplicated; F14.20 Cocaine dependence, uncomplicated; F12.20 Cannabis dependence, uncomplicated; F17.210 Nicotine dependence, cigarettes, uncomplicated; F19.282 Other psychoactive substance dependence with psychoactive substance-induced sleep disorder; F19.24 Other psychoactive substance dependence with psychoactive substance-induced mood disorder; F32.A Depression, unspecified; G62.9 Polyneuropathy, unspecified; E89.0 Postprocedural hypothyroidism; K43.9 Ventral hernia without obstruction or gangrene; A53.0 Latent syphilis, unspecified as early or late; Z86.59 Personal history of other mental and behavioral disorders; Z86.19 Personal history of other infectious and parasitic diseases; Z88.7 Allergy status to serum and vaccine
CPT/HCPCS: 0013A; 36415; 80048; 82962; 84443; 91301; C9803; U0003; U0005